=== PATIENT | male | born 1935 | race Caucasian/White ===

== ENCOUNTER → 2016-07-02 | Outpatient (CLI) | payer MEDICARE, OTHER ==
[~2016-07-02] MED LIST: ALLO100T PO; AMIO0.1T PO; ASPI81TA85 PO; ATOR1TAB21 PO; CALC500T36 PO; CAND16TA7 PO; CARV25TA PO; COQ-100C2 PO; FISH1000 PO; L-thyroxine PO; NIFE30TA2 PO; VITA50003 PO; WARF-20 PO; WARF-23 PO
[2016-07-02 13:51] LABS: INR 3.28
== END ==
LOC: M WUC 09:52
PROVIDERS: ATTEND Emergency Medicine
DX: Z51.81 Encounter for therapeutic drug level monitoring (principal); Z79.01 Long term (current) use of anticoagulants

== ENCOUNTER → 2016-07-27 | Outpatient (CLI) | payer MEDICARE, OTHER ==
[2016-07-27 12:46] LABS: INR 2.58
[2016-07-27 12:51] LABS: BASO # 0.1 K/mm3 (0.0-0.2); BASO % 1.1 % (0.0-1.0); EOS # 0.1 K/mm3 (0.0-0.50); EOS % 1.9 % (0.0-3.0); LARGE UNSTAINED CELL # 0.2 K/mm3 (0.0-0.4); LARGE UNSTAINED CELL % 2.9 % (0.0-4.0); LYMPH # 1.3 K/mm3 (1.5-4.5); LYMPH % 16.5 % (24.0-44.0); MEAN CORPUSCULAR HEMOGLOBIN 31.2 pg (27.0-33.0); MEAN CORPUSCULAR HGB CONC 33.3 g/dl (32.0-36.5); MEAN CORPUSCULAR VOLUME 93.9 fl (80.0-96.0); MONO # 0.5 K/mm3 (0.0-0.8); MONO % 7.7 % (0.0-5.0); NEUTROPHILS # 4.7 K/mm3 (1.8-7.7); NEUTROPHILS % 69.8 % (36.0-66.0); PLATELET COUNT, AUTOMATED 152 k/mm3 (150-450); RED CELL DISTRIBUTION WIDTH 15.2 % (11.5-14.5); WHITE BLOOD COUNT 6.8 K/mm3 (4.0-10.0)
[2016-07-27 13:07] LABS: ALBUMIN 3.9 GM/DL (3.2-5.2); ALBUMIN/GLOBULIN RATIO 1.22 (1.00-1.93); BILIRUBIN,TOTAL 0.6 MG/DL (0.2-1.0); CALCIUM LEVEL 8.2 MG/DL (8.8-10.2); CREATININE FOR GFR 1.68 MG/DL (0.70-1.30); GLOMERULAR FILTRATION RATE 41.7 (>35); MAGNESIUM LEVEL 2.3 MG/DL (1.8-2.4); POTASSIUM SERUM 4.1 MEQ/L (3.5-5.1); TOTAL PROTEIN 7.1 GM/DL (6.4-8.2); URIC ACID 4.7 MG/DL (3.5-7.2)
== END ==
LOC: M WUC 09:44
PROVIDERS: ATTEND Emergency Medicine
DX: I10 Essential (primary) hypertension (principal); E78.2 Mixed hyperlipidemia; D50.9 Iron deficiency anemia, unspecified; M10.9 Gout, unspecified; E03.9 Hypothyroidism, unspecified; Z79.01 Long term (current) use of anticoagulants; E55.9 Vitamin D deficiency, unspecified

== ENCOUNTER → 2016-08-07 | Outpatient (REF) | payer MEDICARE, OTHER ==
[2016-08-07 16:13] LABS: CREATININE FOR GFR 1.7 MG/DL (0.70-1.30); GLOMERULAR FILTRATION RATE 41.2 (>35)
== END ==
LOC: M LABDRAW1 15:28
PROVIDERS: ATTEND Physician Assistant
DX: M17.12 Unilateral primary osteoarthritis, left knee (principal)

== ENCOUNTER → 2016-08-10 | Outpatient (CLI) | payer MEDICARE, OTHER ==
[2016-08-10 16:50] LABS: CREATININE FOR GFR 1.55 MG/DL (0.70-1.30); GLOMERULAR FILTRATION RATE 45.8 (>35)
== END ==
LOC: M WUC 14:41
PROVIDERS: ATTEND Physician Assistant
DX: M48.06 Spinal stenosis, lumbar region (principal)

== ENCOUNTER → 2016-08-28 | Outpatient (REF) | payer MEDICARE, OTHER ==
[2016-08-28 13:57] LABS: INR 4.5
== END ==
LOC: M LABDRAW1 12:32
PROVIDERS: ATTEND Emergency Medicine
DX: Z79.01 Long term (current) use of anticoagulants (principal)

== ENCOUNTER → 2016-09-05 | Outpatient (CLI) | payer MEDICARE, OTHER ==
[2016-09-05 12:31] LABS: INR 3.59
== END ==
LOC: M WUC 10:28
PROVIDERS: ATTEND Emergency Medicine
DX: Z79.01 Long term (current) use of anticoagulants (principal)

== ENCOUNTER → 2016-09-13 | Outpatient (CLI) | payer MEDICARE, OTHER ==
[2016-09-13 12:36] LABS: INR 1.46
== END ==
LOC: M WUC 10:01
PROVIDERS: ATTEND Emergency Medicine
DX: Z79.01 Long term (current) use of anticoagulants (principal)

== ENCOUNTER → 2016-11-08 | Outpatient (REF) | payer MEDICARE, OTHER ==
[~2016-11-08] MED LIST changes: +CALCTAB7 PO; +DONETAB6 PO; +ELIQ2.5T PO; +LEVO88TA3 PO; +MEGA1CAP3 PO; +MEMA1TAB PO; +NIFE15TA PO; +VITA100L PO
[2016-11-08 10:28] LABS: BASO % 0.7 % (0.0-1.0); EOS # 0.2 K/mm3 (0.0-0.50); EOS % 2.3 % (0.0-3.0); LARGE UNSTAINED CELL # 0.2 K/mm3 (0.0-0.4); LARGE UNSTAINED CELL % 2.5 % (0.0-4.0); LYMPH # 1.4 K/mm3 (1.5-4.5); MEAN CORPUSCULAR HEMOGLOBIN 32.2 pg (27.0-33.0); MEAN CORPUSCULAR HGB CONC 33.3 g/dl (32.0-36.5); MEAN CORPUSCULAR VOLUME 96.8 fl (80.0-96.0); MONO # 0.6 K/mm3 (0.0-0.8); MONO % 8.1 % (0.0-5.0); NEUTROPHILS # 5.2 K/mm3 (1.8-7.7); NEUTROPHILS % 70.4 % (36.0-66.0); PLATELET COUNT, AUTOMATED 157 k/mm3 (150-450); RED CELL DISTRIBUTION WIDTH 15.1 % (11.5-14.5); WHITE BLOOD COUNT 7.4 K/mm3 (4.0-10.0)
[2016-11-08 10:56] LABS: ALBUMIN 3.6 GM/DL (3.2-5.2); ALBUMIN/GLOBULIN RATIO 1.24 (1.00-1.93); BILIRUBIN,TOTAL 0.7 MG/DL (0.2-1.0); CALCIUM LEVEL 8.3 MG/DL (8.8-10.2); CREATININE FOR GFR 1.41 MG/DL (0.70-1.30); GLOMERULAR FILTRATION RATE 51.1 (>35); MAGNESIUM LEVEL 2.2 MG/DL (1.8-2.4); TOTAL PROTEIN 6.5 GM/DL (6.4-8.2); URIC ACID 4.4 MG/DL (3.5-7.2)
== END ==
LOC: M LABDRAW1 08:06
PROVIDERS: ATTEND Emergency Medicine
DX: E78.2 Mixed hyperlipidemia (principal); I10 Essential (primary) hypertension; E55.9 Vitamin D deficiency, unspecified; D50.9 Iron deficiency anemia, unspecified; M10.9 Gout, unspecified; E83.42 Hypomagnesemia; E03.9 Hypothyroidism, unspecified

== ENCOUNTER → 2016-11-15 | Day surgery (SDC) | payer MEDICARE, OTHER ==
[~2016-11-15] VITALS: Ht 175.3 cm; Wt 84.2 kg
[~2016-11-15] MED LIST changes: +CLINDAMYCIN 600 MG in APPROPRIATE DILUENT 1 EA IV ONE; +LIDOCAINE 2% INJ 100 MG/5 ML SDV (FOR ANES.) As Ordered ONE; +LR 1,000 ML IV ONE; +LR 1,000 ML IV SCH; +MIDAZOLAM INJ 2 MG/2 ML VIAL (J2250) As Ordered ONE; +NORCO, ANEXSIA 5/325MG TABLET (HYDROcodone/ACETAMINOPHEN) PO PRN; +ONDANSETRON 4MG/2ML VIAL (J2405) As Ordered ONE; +ONDANSETRON 4MG/2ML VIAL (J2405) IV PRN; +PERCOCET 5MG/325MG TAB As Ordered ONE; +PROPOFOL 200 MG/20 ML VIAL As Ordered ONE; +ROPIvacaine 0.5% 30 ML INJECTION (J2795) As Ordered ONE; +TRIAMCINOLONE ACETONIDE SUSP 40 MG/ML VIAL (J3301) As Ordered ONE; +fentaNYL 100 MCG/2 ML INJECTION (J3010) As Ordered ONE; +fentaNYL 100 MCG/2 ML INJECTION (J3010) IV PRN
[2016-11-15] MEDS: PERCOCET 5MG/325MG TAB PO PRN ×2 (10:02→11:37)
[2016-11-15 11:30] VITALS: BP 144/71
--- NOTE | 2016-11-15 17:30 | RO ---
DATE OF PROCEDURE: 11/15/2016 PREOPERATIVE DIAGNOSIS: Left knee osteoarthritis, medial and lateral meniscus tears. POSTOPERATIVE DIAGNOSIS: Left knee osteoarthritis, medial and lateral meniscus tears. PROCEDURE: Left knee operative arthroscopy, partial medial and lateral meniscectomy, joint debridement, excision plica. SURGEON: Dr. Edwardo Ward BRAILLE CODER: Dakotah Robertson ANESTHESIA: General. ESTIMATED BLOOD LOSS: Minimal. COMPLICATIONS: None. INDICATIONS: This is an 81-year-old gentleman who has had some persistent knee pain and some degree of arthritis, but it did not seem to be severe arthritic change. He had medial and lateral meniscus tears on an MRI scan and had a previous arthroscopy on his other knee and did very well with that. He wished to try debridement of his left knee, understood the nature this, the risks of bleeding, infection, damage to nerves, vessels, persistent pain, blood clots, medical problems, among others. He had failed conservative management. DESCRIPTION OF PROCEDURE: The patient was taken to operating room, placed in supine position after general anesthesia was induced. The left lower extremity was prepped and draped in the usual sterile fashion. A time-out was performed. I then created inferomedial, inferolateral portals after the tourniquet was inflated and identified the patellofemoral joint, which had grade 3 changes in both sides. He had a large medial parapatellar plica. I proceeded down both gutters, identified the medial compartment. He had a large posterior horn medial meniscus tear that was debrided with a combination of basket punch and a 4.2 shaver back to a stable rim. The meniscus was reprobed. There was some arthritic change on the medial compartment, which was carefully smoothed off, removing any loose flaps. The anterior cruciate ligament (ACL) was identified. There was some fraying of the ACL, indicating probably some partial tear that appeared to be remote. The lateral compartment was identified, and there was some central lateral meniscus tearing, loose flap that was debrided. This was debrided with a shaver. Proceeded back to patellofemoral joint, removed the medial parapatellar plica. Irrigated the knee copiously, reexamined the entire joint, removed the instrumentation, closed the portals using #4-0 nylon suture, injected 30 mL of Naropin with 2 mL of Kenalog 10 and a sterile dressing was applied. Tourniquet was deflated. He was taken to the recovery room in stable condition. There were no known complications. The plan be routine postoperative.
== END | disposition home or self-care (01) ==
LOC: M SDC 07:39
PROVIDERS: ATTEND Orthopaedic Surgery
DX: M23.222 Derangement of posterior horn of medial meniscus due to old tear or injury, left knee (principal); M23.362 Other meniscus derangements, other lateral meniscus, left knee; M67.52 Plica syndrome, left knee; I10 Essential (primary) hypertension; I25.10 Atherosclerotic heart disease of native coronary artery without angina pectoris; E78.5 Hyperlipidemia, unspecified; Z98.61 Coronary angioplasty status; K44.9 Diaphragmatic hernia without obstruction or gangrene; K21.9 Gastro-esophageal reflux disease without esophagitis; E03.9 Hypothyroidism, unspecified; M10.9 Gout, unspecified; Z88.0 Allergy status to penicillin; Z79.82 Long term (current) use of aspirin; Z79.899 Other long term (current) drug therapy; Z87.891 Personal history of nicotine dependence
CPT/HCPCS: 29880; J2250; J2405; J2795; J3010; J3301

== ENCOUNTER → 2017-01-24 | Outpatient (REF) | payer MEDICARE, OTHER ==
[~2017-01-24] MED LIST changes: -CLINDAMYCIN 600 MG in APPROPRIATE DILUENT 1 EA IV ONE; -LIDOCAINE 2% INJ 100 MG/5 ML SDV (FOR ANES.) As Ordered ONE; -LR 1,000 ML IV ONE; -LR 1,000 ML IV SCH; -MIDAZOLAM INJ 2 MG/2 ML VIAL (J2250) As Ordered ONE; -NORCO, ANEXSIA 5/325MG TABLET (HYDROcodone/ACETAMINOPHEN) PO PRN; -ONDANSETRON 4MG/2ML VIAL (J2405) As Ordered ONE; -ONDANSETRON 4MG/2ML VIAL (J2405) IV PRN; -PERCOCET 5MG/325MG TAB As Ordered ONE; -PROPOFOL 200 MG/20 ML VIAL As Ordered ONE; -ROPIvacaine 0.5% 30 ML INJECTION (J2795) As Ordered ONE; -TRIAMCINOLONE ACETONIDE SUSP 40 MG/ML VIAL (J3301) As Ordered ONE; +VITA1CAP40 PO; -VITA50003 PO; -fentaNYL 100 MCG/2 ML INJECTION (J3010) As Ordered ONE; -fentaNYL 100 MCG/2 ML INJECTION (J3010) IV PRN
[2017-01-24 12:01] LABS: BASO % 0.6 % (0.0-1.0); EOS # 0.2 K/mm3 (0.0-0.50); EOS % 2.8 % (0.0-3.0); LARGE UNSTAINED CELL # 0.2 K/mm3 (0.0-0.4); LARGE UNSTAINED CELL % 2.5 % (0.0-4.0); LYMPH # 1.5 K/mm3 (1.5-4.5); LYMPH % 19.3 % (24.0-44.0); MEAN CORPUSCULAR HEMOGLOBIN 32.1 pg (27.0-33.0); MEAN CORPUSCULAR HGB CONC 34.2 g/dl (32.0-36.5); MONO # 0.6 K/mm3 (0.0-0.8); MONO % 8.5 % (0.0-5.0); NEUTROPHILS # 4.4 K/mm3 (1.8-7.7); NEUTROPHILS % 66.2 % (36.0-66.0); PLATELET COUNT, AUTOMATED 150 k/mm3 (150-450); RED CELL DISTRIBUTION WIDTH 14.4 % (11.5-14.5); WHITE BLOOD COUNT 6.7 K/mm3 (4.0-10.0)
[2017-01-24 12:44] LABS: ALBUMIN 3.8 GM/DL (3.2-5.2); ALBUMIN/GLOBULIN RATIO 1.23 (1.00-1.93); BILIRUBIN,TOTAL 0.4 MG/DL (0.2-1.0); CALCIUM LEVEL 8.6 MG/DL (8.8-10.2); CREATININE FOR GFR 1.5 MG/DL (0.70-1.30); GLOMERULAR FILTRATION RATE 47.6 (>35); MAGNESIUM LEVEL 2.6 MG/DL (1.8-2.4); POTASSIUM SERUM 4.2 MEQ/L (3.5-5.1); TOTAL PROTEIN 6.9 GM/DL (6.4-8.2); URIC ACID 4.5 MG/DL (3.5-7.2)
== END ==
LOC: M LABDRAW1 11:17
PROVIDERS: ATTEND Emergency Medicine
DX: E78.2 Mixed hyperlipidemia (principal); I10 Essential (primary) hypertension; E55.9 Vitamin D deficiency, unspecified; D50.9 Iron deficiency anemia, unspecified; M10.9 Gout, unspecified; E83.42 Hypomagnesemia; E03.9 Hypothyroidism, unspecified

== ENCOUNTER → 2017-02-28 | Outpatient (CLI) | payer MEDICARE, OTHER ==
[2017-02-28 13:27] LABS: INR 1.15
== END ==
LOC: M WUC 10:00
PROVIDERS: ATTEND Physical Medicine & Rehabilitation
DX: Z01.818 Encounter for other preprocedural examination (principal); M48.06 Spinal stenosis, lumbar region

== ENCOUNTER → 2017-07-17 | Outpatient (CLI) | payer MEDICARE, OTHER ==
[2017-07-19 09:23] LABS: CARCINOEMBRYONIC ANTIGEN 1.7 NG/ML (<2.5)
== END ==
LOC: M WUC 11:22
DX: Z85.038 Personal history of other malignant neoplasm of large intestine (principal); Z79.899 Other long term (current) drug therapy
CPT/HCPCS: 82378

== ENCOUNTER → 2017-07-26 | Outpatient (REF) | payer MEDICARE, OTHER ==
[2017-07-26 14:08] LABS: BASO % 0.6 % (0.0-1.0); EOS # 0.1 10^3/uL (0.0-0.50); EOS % 1.9 % (0.0-3.0); HEMATOCRIT 36.5 % (42.0-52.0); HEMOGLOBIN 12.2 g/dl (14.0-18.0); IMMATURE GRANULOCYTE % 0.3 % (0-0); LYMPH # 1.2 10^3/uL (1.5-4.5); LYMPH % 16.3 % (24.0-44.0); MEAN CORPUSCULAR HEMOGLOBIN 31.4 pg (27.0-33.0); MEAN CORPUSCULAR HGB CONC 33.4 g/dl (32.0-36.5); MEAN CORPUSCULAR VOLUME 94.1 fl (80.0-96.0); MONO # 0.8 10^3/uL (0.0-0.8); MONO % 11.2 % (0.0-5.0); NEUTROPHILS % 69.7 % (36.0-66.0); PLATELET COUNT, AUTOMATED 149 10^3/uL (150-450); RED BLOOD COUNT 3.88 10^6/uL (4.30-6.10); RED CELL DISTRIBUTION WIDTH 14.8 % (11.5-14.5); WHITE BLOOD COUNT 7.2 10^3/uL (4.0-10.0)
[2017-07-26 14:36] LABS: TOTAL 25(OH) VITAMIN D 45.5 NG/ML (30.0-100.0)
[2017-07-26 14:43] LABS: ALBUMIN/GLOBULIN RATIO 1.54 (1.00-1.93); ALKALINE PHOSPHATASE 138 U/L (45-117); ALT/SGPT 39 U/L (12-78); ANION GAP 6 MEQ/L (8-16); AST/SGOT 23 U/L (7-37); BILIRUBIN,TOTAL 0.5 MG/DL (0.2-1.0); BLOOD UREA NITROGEN 25 MG/DL (7-18); CALCIUM LEVEL 8.9 MG/DL (8.8-10.2); CARBON DIOXIDE LEVEL 29 MEQ/L (21-32); CHLORIDE LEVEL 109 MEQ/L (98-107); CHOLESTEROL LEVEL 168 MG/DL (<200); CREATININE FOR GFR 1.64 MG/DL (0.70-1.30); FREE T4 1.34 NG/DL (0.76-1.46); GLOMERULAR FILTRATION RATE 42.8 (>35); GLUCOSE, FASTING 102 MG/DL (70-100); HDL CHOLESTEROL 60 MG/DL (>40); LDL CHOLESTEROL 89.2 MG/DL (<100); MAGNESIUM LEVEL 2.4 MG/DL (1.8-2.4); NON-HDL-C 108 MG/DL; POTASSIUM SERUM 4.1 MEQ/L (3.5-5.1); SODIUM LEVEL 144 MEQ/L (136-145); THYROID STIMULATING HORMONE 0.875 uIU/ML (0.358-3.740); TOTAL PROTEIN 6.6 GM/DL (6.4-8.2); TRIGLYCERIDES LEVEL 94 MG/DL (<150); URIC ACID 4.4 MG/DL (3.5-7.2)
== END ==
LOC: M LABDRAW1 13:09
DX: I48.0 Paroxysmal atrial fibrillation (principal); I10 Essential (primary) hypertension; E78.2 Mixed hyperlipidemia; E03.9 Hypothyroidism, unspecified; E55.9 Vitamin D deficiency, unspecified; M10.9 Gout, unspecified; E83.42 Hypomagnesemia
CPT/HCPCS: 83735

== ENCOUNTER 2017-09-15 12:40 | Emergency (ER) | payer MEDICARE, OTHER ==
[2017-09-15 14:06] LABS: BASO % 0.3 % (0.0-1.0); EOS # 0.1 10^3/uL (0.0-0.50); HEMATOCRIT 36.3 % (42.0-52.0); HEMOGLOBIN 12.5 g/dl (14.0-18.0); IMMATURE GRANULOCYTE % 0.4 % (0-3.0); LYMPH # 1.2 10^3/uL (1.5-4.5); LYMPH % 12.9 % (24.0-44.0); MEAN CORPUSCULAR HGB CONC 34.4 g/dl (32.0-36.5); MEAN CORPUSCULAR VOLUME 92.8 fl (80.0-96.0); MONO # 1.1 10^3/uL (0.0-0.8); MONO % 12.5 % (0.0-5.0); NEUTROPHILS # 6.6 10^3/uL (1.8-7.7); NEUTROPHILS % 72.9 % (36.0-66.0); PLATELET COUNT, AUTOMATED 153 10^3/uL (150-450); RED BLOOD COUNT 3.91 10^6/uL (4.30-6.10); RED CELL DISTRIBUTION WIDTH 14.6 % (11.5-14.5)
[2017-09-15 14:25] LABS: NT-PRO BNP 269 PG/ML (<450)
[2017-09-15 14:26] LABS: ALBUMIN 3.6 GM/DL (3.2-5.2); ALBUMIN/GLOBULIN RATIO 1.13 (1.00-1.93); ALKALINE PHOSPHATASE 126 U/L (45-117); ALT/SGPT 35 U/L (12-78); ANION GAP 7 MEQ/L (8-16); AST/SGOT 19 U/L (7-37); BILIRUBIN,DIRECT 0.2 MG/DL (0.0-0.2); BILIRUBIN,TOTAL 0.6 MG/DL (0.2-1.0); BLOOD UREA NITROGEN 25 MG/DL (7-18); CALCIUM LEVEL 8.5 MG/DL (8.8-10.2); CARBON DIOXIDE LEVEL 29 MEQ/L (21-32); CHLORIDE LEVEL 107 MEQ/L (98-107); CK-MB VALUE MASS 5.4 NG/ML (0.0-3.6); CPK CREATINE PHOSPHOKINASE 257 U/L (39-308); CREATININE FOR GFR 1.39 MG/DL (0.70-1.30); GLOMERULAR FILTRATION RATE 51.8 (>35); GLUCOSE, FASTING 96 MG/DL (70-100); SODIUM LEVEL 143 MEQ/L (136-145); TOTAL PROTEIN 6.8 GM/DL (6.4-8.2); TROPONIN I < 0.02 NG/ML (< 0.10)
[2017-09-15] MEDS ORDERED: ISOVUE-370 76% 100ML VIAL (Q9967) As Ordered ×2 (14:26)
[2017-09-15] MEDS: KETOROLAC 30 MG/ML VIAL (J1885) IV ×2 (15:39)
== END 2017-09-15 16:05 | disposition home or self-care (01) ==
LOC: M ED 12:40
DX: S22.32XA Fracture of one rib, left side, initial encounter for closed fracture (principal); W00.0XXA Fall on same level due to ice and snow, initial encounter; Y92.89 Other specified places as the place of occurrence of the external cause; I48.91 Unspecified atrial fibrillation; I10 Essential (primary) hypertension; F03.90 Unspecified dementia, unspecified severity, without behavioral disturbance, psychotic disturbance, mood disturbance, and anxiety; G47.30 Sleep apnea, unspecified; E03.9 Hypothyroidism, unspecified; Z85.038 Personal history of other malignant neoplasm of large intestine; Z95.5 Presence of coronary angioplasty implant and graft; Z87.891 Personal history of nicotine dependence; Z88.0 Allergy status to penicillin; Z91.048 Other nonmedicinal substance allergy status; Z79.899 Other long term (current) drug therapy; Z79.01 Long term (current) use of anticoagulants
CPT/HCPCS: Q9967

== ENCOUNTER → 2017-09-15 | Outpatient (CLI) | payer MEDICARE, OTHER | LOC: M WUC 11:13 | DX: S22.32XA Fracture of one rib, left side, initial encounter for closed fracture (principal); X58.XXXA Exposure to other specified factors, initial encounter; Y92.9 Unspecified place or not applicable ==

== ENCOUNTER → 2017-11-27 | Outpatient (REF) | payer MEDICARE, OTHER ==
[2017-11-28 11:10] LABS: MAGNESIUM LEVEL 2.8 MG/DL (1.8-2.4)
[2017-11-28 11:10] LABS: THYROID STIMULATING HORMONE 0.584 uIU/ML (0.358-3.740)
== END ==
LOC: M LABSMT 09:28
DX: I48.0 Paroxysmal atrial fibrillation (principal)
CPT/HCPCS: 83735

== ENCOUNTER → 2018-01-30 | Outpatient (CLI) | payer MEDICARE, OTHER ==
[2018-01-30 11:59] LABS: BASO % 0.6 % (0.0-1.0); EOS # 0.2 10^3/uL (0.0-0.50); HEMATOCRIT 39.1 % (42.0-52.0); HEMOGLOBIN 13.2 g/dl (13.5-17.5); IMMATURE GRANULOCYTE % 0.3 % (0-3.0); LYMPH # 1.2 10^3/uL (1.5-4.5); LYMPH % 17.8 % (24.0-44.0); MEAN CORPUSCULAR HEMOGLOBIN 31.7 pg (27.0-33.0); MEAN CORPUSCULAR HGB CONC 33.8 g/dl (32.0-36.5); MEAN CORPUSCULAR VOLUME 93.8 fl (80.0-96.0); MONO # 0.8 10^3/uL (0.0-0.8); MONO % 11.2 % (0.0-5.0); NEUTROPHILS # 4.5 10^3/uL (1.8-7.7); NEUTROPHILS % 67.1 % (36.0-66.0); PLATELET COUNT, AUTOMATED 153 10^3/uL (150-450); RED BLOOD COUNT 4.17 10^6/uL (4.30-6.10); RED CELL DISTRIBUTION WIDTH 14.3 % (11.5-14.5); WHITE BLOOD COUNT 6.7 10^3/uL (4.0-10.0)
[2018-01-30 12:51] LABS: ALBUMIN 3.8 GM/DL (3.2-5.2); ALBUMIN/GLOBULIN RATIO 1.23 (1.00-1.93); ALKALINE PHOSPHATASE 156 U/L (45-117); ALT/SGPT 29 U/L (12-78); ANION GAP 9 MEQ/L (8-16); AST/SGOT 22 U/L (7-37); BILIRUBIN,TOTAL 0.5 MG/DL (0.2-1.0); BLOOD UREA NITROGEN 18 MG/DL (7-18); CALCIUM LEVEL 8.4 MG/DL (8.8-10.2); CARBON DIOXIDE LEVEL 28 MEQ/L (21-32); CHLORIDE LEVEL 106 MEQ/L (98-107); CHOLESTEROL LEVEL 197 MG/DL (<200); CREATININE FOR GFR 1.43 MG/DL (0.70-1.30); FREE T4 1.15 NG/DL (0.76-1.46); GLOMERULAR FILTRATION RATE 50.2 (>35); GLUCOSE, FASTING 86 MG/DL (70-100); HDL CHOLESTEROL 65 MG/DL (>40); MAGNESIUM LEVEL 2.2 MG/DL (1.8-2.4); NON-HDL-C 132 MG/DL; SODIUM LEVEL 143 MEQ/L (136-145); TOTAL PROTEIN 6.9 GM/DL (6.4-8.2); TRIGLYCERIDES LEVEL 90 MG/DL (<150); URIC ACID 4.6 MG/DL (3.5-7.2)
== END ==
LOC: M WUC 09:32
DX: I48.0 Paroxysmal atrial fibrillation (principal); I10 Essential (primary) hypertension; E78.2 Mixed hyperlipidemia; E03.9 Hypothyroidism, unspecified; E55.9 Vitamin D deficiency, unspecified
CPT/HCPCS: 83735

== ENCOUNTER → 2018-06-04 | Outpatient (REF) | payer MEDICARE, OTHER ==
[2018-06-04 18:47] LABS: APPEARANCE, URINE CLEAR (CLEAR); BACTERIA, URINE AUTO NEGATIVE (NEGATIVE); BILIRUBIN, URINE AUTO NEGATIVE (NEGATIVE); BLOOD, URINE BLOOD NEGATIVE (NEGATIVE); COLOR, URINE YELLOW (YELLOW); GLUCOSE, URINE (UA) AUTO NEGATIVE (NEGATIVE); KETONE, URINE AUTO NEGATIVE (NEGATIVE); LEUKOCYTE ESTERASE, URINE AUTO NEGATIVE (NEGATIVE); MUCUS, URINE SMALL (NEGATIVE); NITRITE, URINE AUTO NEGATIVE (NEGATIVE); PROTEIN, URINE AUTO 1+ mg/dL (NEGATIVE); RBC, URINE AUTO 0 /HPF (0-3); SPECIFIC GRAVITY URINE AUTO 1.016 (1.002-1.035); SQUAMOUS EPITHELIAL CELL UR AU 0 /HPF (0-6); UROBILINOGEN, URINE AUTO 0.2 mg/dL (0.0-2.0); WBC, URINE AUTO 0 /HPF (0-3)
[2018-06-04 18:54] LABS: CHOLESTEROL LEVEL 176 MG/DL (<200); HDL CHOLESTEROL 55 MG/DL (>40); LDL CHOLESTEROL 96 MG/DL (<100); NON-HDL-C 121 MG/DL; TRIGLYCERIDES LEVEL 123 MG/DL (<150)
[2018-06-04 18:59] LABS: TOTAL 25(OH) VITAMIN D 53.3 NG/ML (30.0-100.0)
[2018-06-04 19:04] LABS: BASO % 0.4 % (0.0-1.0); EOS # 0.1 10^3/uL (0.0-0.50); EOS % 1.9 % (0.0-3.0); HEMATOCRIT 40.5 % (42.0-52.0); HEMOGLOBIN 13.3 g/dl (13.5-17.5); IMMATURE GRANULOCYTE % 0.3 % (0-3.0); LYMPH # 0.9 10^3/uL (1.5-4.5); LYMPH % 13.1 % (24.0-44.0); MEAN CORPUSCULAR HEMOGLOBIN 31.5 pg (27.0-33.0); MEAN CORPUSCULAR HGB CONC 32.8 g/dl (32.0-36.5); MONO # 0.6 10^3/uL (0.0-0.8); MONO % 8.4 % (0.0-5.0); NEUTROPHILS # 5.3 10^3/uL (1.8-7.7); NEUTROPHILS % 75.9 % (36.0-66.0); PLATELET COUNT, AUTOMATED 150 10^3/uL (150-450); RED BLOOD COUNT 4.22 10^6/uL (4.30-6.10); RED CELL DISTRIBUTION WIDTH 14.8 % (11.5-14.5)
[2018-06-04 19:08] LABS: INR 1.18; PARTIAL THROMBOPLASTIN TIME 32.2 SECONDS (25.4-37.6); PROTHROMBIN TIME 15.2 SECONDS (12.1-14.4)
[2018-06-04 19:10] LABS: PTH INTACT 44.3 PG/ML (18.5-88.0)
[2018-06-04 19:21] LABS: ESTIMATED AVERAGE GLUCOSE 123 MG/DL (60-110); HEMOGLOBIN A1c 5.9 %
[2018-06-04 19:23] LABS: MAU/CREAT RATIO 112.8 MCG/MG (0.0-30.0)
[2018-06-06 14:15] LABS: PSA TOTAL 1.1 ng/mL (0.0-4.0)
== END ==
LOC: M LABDRAW1 10:52
DX: I48.0 Paroxysmal atrial fibrillation (principal); I12.9 Hypertensive chronic kidney disease with stage 1 through stage 4 chronic kidney disease, or unspecified chronic kidney disease; E78.5 Hyperlipidemia, unspecified; N18.3 Chronic kidney disease, stage 3 (moderate); E55.9 Vitamin D deficiency, unspecified; Z79.899 Other long term (current) drug therapy
CPT/HCPCS: 83735

== ENCOUNTER → 2018-06-04 | Outpatient (REF) | payer MEDICARE, OTHER ==
[2018-06-04 18:59] LABS: ALBUMIN/GLOBULIN RATIO 1.38 (1.00-1.93); ALKALINE PHOSPHATASE 157 U/L (45-117); ALT/SGPT 31 U/L (12-78); ANION GAP 8 MEQ/L (8-16); AST/SGOT 25 U/L (7-37); BILIRUBIN,TOTAL 0.5 MG/DL (0.2-1.0); BLOOD UREA NITROGEN 21 MG/DL (7-18); CALCIUM LEVEL 8.4 MG/DL (8.8-10.2); CARBON DIOXIDE LEVEL 28 MEQ/L (21-32); CHLORIDE LEVEL 106 MEQ/L (98-107); CREATININE FOR GFR 1.57 MG/DL (0.70-1.30); GLOMERULAR FILTRATION RATE 44.9 (>35); GLUCOSE, FASTING 105 MG/DL (70-100); MAGNESIUM LEVEL 2.3 MG/DL (1.8-2.4); POTASSIUM SERUM 4.3 MEQ/L (3.5-5.1); SODIUM LEVEL 142 MEQ/L (136-145); TOTAL PROTEIN 6.9 GM/DL (6.4-8.2)
== END ==
LOC: M LABDRAW1 10:50
DX: I11.9 Hypertensive heart disease without heart failure (principal); I48.0 Paroxysmal atrial fibrillation

== ENCOUNTER → 2018-09-15 | Outpatient (CLI) | payer MEDICARE, OTHER ==
[~2018-09-15] MED LIST changes: +PERC5TAB12 PO; -VITA1CAP40 PO; +VITA50005 PO
[2018-09-15 13:36] LABS: BASO # 0.1 10^3/uL (0.0-0.2); BASO % 0.9 % (0.0-1.0); EOS # 0.1 10^3/uL (0.0-0.50); EOS % 1.7 % (0.0-3.0); HEMATOCRIT 39.3 % (42.0-52.0); HEMOGLOBIN 12.9 g/dl (13.5-17.5); LYMPH % 17.5 % (24.0-44.0); MEAN CORPUSCULAR HGB CONC 32.8 g/dl (32.0-36.5); MEAN CORPUSCULAR VOLUME 94.5 fl (80.0-96.0); MONO # 0.6 10^3/uL (0.0-0.8); MONO % 10.7 % (0.0-5.0); PLATELET COUNT, AUTOMATED 132 10^3/uL (150-450); RED BLOOD COUNT 4.16 10^6/uL (4.30-6.10); WHITE BLOOD COUNT 5.7 10^3/uL (4.0-10.0)
[2018-09-15 13:50] LABS: INR 1.07
[2018-09-15 13:51] LABS: PARTIAL THROMBOPLASTIN TIME 31.6 SECONDS (25.4-37.6)
[2018-09-15 14:02] LABS: ALBUMIN 3.8 GM/DL (3.2-5.2); CALCIUM LEVEL 8.8 MG/DL (8.8-10.2); CHOLESTEROL RISK RATIO 3.578 (<5); CREATININE FOR GFR 1.44 MG/DL (0.70-1.30); FREE T4 1.59 NG/DL (0.76-1.46); GLOMERULAR FILTRATION RATE 49.6 (>35); MAGNESIUM LEVEL 2.1 MG/DL (1.8-2.4); POTASSIUM SERUM 4.1 MEQ/L (3.5-5.1); THYROID STIMULATING HORMONE 0.609 uIU/ML (0.358-3.740); TOTAL PROTEIN 6.6 GM/DL (6.4-8.2); URIC ACID 4.1 MG/DL (3.5-7.2)
[2018-09-15 14:20] LABS: HEMOGLOBIN A1c 5.7 %
== END ==
LOC: M WUC 11:16
PROVIDERS: ATTEND Nurse Practitioner Family
DX: I12.9 Hypertensive chronic kidney disease with stage 1 through stage 4 chronic kidney disease, or unspecified chronic kidney disease (principal); R73.09 Other abnormal glucose; E78.5 Hyperlipidemia, unspecified; I48.91 Unspecified atrial fibrillation; N18.3 Chronic kidney disease, stage 3 (moderate); M10.9 Gout, unspecified

== ENCOUNTER → 2018-11-03 | Outpatient (CLI) | payer MEDICARE, OTHER ==
[~2018-11-03] MED LIST changes: +CALC12504 PO; -CALC500T36 PO
[2018-11-03 13:23] LABS: FREE T4 1.28 NG/DL (0.76-1.46); THYROID STIMULATING HORMONE 1.74 uIU/ML (0.358-3.740)
== END ==
LOC: M WUC 10:38
PROVIDERS: ATTEND Nurse Practitioner Family
DX: E03.9 Hypothyroidism, unspecified (principal)

== ENCOUNTER → 2019-02-19 | Outpatient (REF) | payer MEDICARE, OTHER ==
[~2019-02-19] MED LIST changes: -CALC12504 PO; +CALC500T61 PO; -MEMA1TAB PO; +MEMA1TAB3 PO
[2019-02-19 16:28] LABS: BASO # 0.1 10^3/uL (0.0-0.2); BASO % 0.7 % (0.0-1.0); EOS # 0.1 10^3/uL (0.0-0.50); EOS % 1.6 % (0.0-3.0); HEMATOCRIT 37.5 % (42.0-52.0); HEMOGLOBIN 12.4 g/dl (13.5-17.5); LYMPH # 0.9 10^3/uL (1.5-4.5); LYMPH % 12.8 % (24.0-44.0); MEAN CORPUSCULAR HEMOGLOBIN 31.5 pg (27.0-33.0); MEAN CORPUSCULAR HGB CONC 33.1 g/dl (32.0-36.5); MEAN CORPUSCULAR VOLUME 95.2 fl (80.0-96.0); MONO # 0.6 10^3/uL (0.0-0.8); MONO % 9.2 % (0.0-5.0); NEUTROPHILS # 5.1 10^3/uL (1.8-7.7); NEUTROPHILS % 75.4 % (36.0-66.0); PLATELET COUNT, AUTOMATED 177 10^3/uL (150-450); RED BLOOD COUNT 3.94 10^6/uL (4.30-6.10); WHITE BLOOD COUNT 6.7 10^3/uL (4.0-10.0)
[2019-02-19 16:39] LABS: INR 1.15; PROTHROMBIN TIME 14.4 SECONDS (11.8-14.0)
[2019-02-19 16:40] LABS: PARTIAL THROMBOPLASTIN TIME 38.3 SECONDS (25.0-38.4)
[2019-02-19 16:51] LABS: ALBUMIN 3.7 GM/DL (3.2-5.2); BILIRUBIN,TOTAL 0.5 MG/DL (0.2-1.0); CALCIUM LEVEL 8.5 MG/DL (8.8-10.2); CHOLESTEROL RISK RATIO 2.909 (<5); CREATININE FOR GFR 1.32 MG/DL (0.70-1.30); FREE T4 1.01 NG/DL (0.76-1.46); GLOMERULAR FILTRATION RATE 54.9 (>35); MAGNESIUM LEVEL 2.7 MG/DL (1.8-2.4); POTASSIUM SERUM 4.2 MEQ/L (3.5-5.1); THYROID STIMULATING HORMONE 5.74 uIU/ML (0.358-3.740); TOTAL PROTEIN 6.9 GM/DL (6.4-8.2)
[2019-02-19 18:24] LABS: HEMOGLOBIN A1c 5.7 %
[2019-02-19 21:07] LABS: TOTAL 25(OH) VITAMIN D 53.6 NG/ML (30.0-100.0)
[2019-02-19 21:08] LABS: PTH INTACT 71.6 PG/ML (18.5-88.0)
== END ==
LOC: M LABDRAW1 15:44
PROVIDERS: ATTEND Nurse Practitioner Family
DX: I12.9 Hypertensive chronic kidney disease with stage 1 through stage 4 chronic kidney disease, or unspecified chronic kidney disease (principal); N18.3 Chronic kidney disease, stage 3 (moderate); E03.9 Hypothyroidism, unspecified; R73.09 Other abnormal glucose; E78.5 Hyperlipidemia, unspecified; I48.91 Unspecified atrial fibrillation

== ENCOUNTER 2019-10-12 01:30 | Inpatient (IN) | payer MEDICARE, OTHER ==
[~2019-10-12] VITALS: Ht 172.7 cm; Wt 77.5 kg
[2019-10-12] VITALS (9 sets, daily range): BP systolic 105–187; BP diastolic 52–86; O2SAT 93–95
[2019-10-12 02:01] LABS: BASO % 0.2 % (0.0-1.0); HEMATOCRIT 39.1 % (42.0-52.0); HEMOGLOBIN 12.9 g/dl (13.5-17.5); LYMPH # 0.9 10^3/uL (1.5-5.0); LYMPH % 3.5 % (24.0-44.0); MEAN CORPUSCULAR HEMOGLOBIN 30.4 pg (27.0-33.0); MEAN CORPUSCULAR VOLUME 92.2 fl (80.0-96.0); MONO # 2.1 10^3/uL (0.0-0.8); MONO % 8.1 % (0.0-5.0); NEUTROPHILS # 22.8 10^3/uL (1.5-8.5); NEUTROPHILS % 87.4 % (36.0-66.0); PLATELET COUNT, AUTOMATED 131 10^3/uL (150-450); RED BLOOD COUNT 4.24 10^6/uL (4.30-6.10); WHITE BLOOD COUNT 26.1 10^3/uL (4.0-10.0)
[2019-10-12] MEDS ORDERED: CAND8TAB PO (02:01)
[2019-10-12] MEDS ORDERED: NAMZ1CAP2 PO (02:05)
[2019-10-12] MEDS ORDERED: VITA50005 PO (02:05)
[2019-10-12] MEDS ORDERED: NS 500 ML IV ONE (02:15)
[2019-10-12] MEDS ORDERED: ACETAMINOPHEN 500 MG TAB PO ONE (02:15)
[2019-10-12 02:22] LABS: ALBUMIN 3.7 GM/DL (3.2-5.2); BILIRUBIN,TOTAL 1.2 MG/DL (0.2-1.0); C REACTIVE PROTEIN QUANTITATIV 15.8 MG/DL (0.00-0.30); CALCIUM LEVEL 8.6 MG/DL (8.8-10.2); CREATININE FOR GFR 1.59 MG/DL (0.70-1.30); GLOMERULAR FILTRATION RATE 44.2 (>35); POTASSIUM SERUM 4.1 MEQ/L (3.5-5.1); TOTAL PROTEIN 7.2 GM/DL (6.4-8.2)
--- NOTE | 2019-10-12 03:31 | REP ---
Clinical: Fever. Comparison: 05/30/2016. Findings: Mediastinum and cardiac silhouette are normal. Lung sylvester demonstrate stable chronic interstitial changes. No obvious focal consolidation or effusion. No pneumothorax. Skeletal structures intact. Impression: Chronic stable changes. Electronically Signed by Darrius Ulloa MD 10/12/2019 03:23 A
[2019-10-12 03:42] LABS: APPEARANCE, URINE HAZY (CLEAR); BACTERIA, URINE AUTO NEGATIVE (NEGATIVE); BILIRUBIN, URINE AUTO NEGATIVE (NEGATIVE); BLOOD, URINE BLOOD 1+ (NEGATIVE); COLOR, URINE YELLOW (YELLOW); GLUCOSE, URINE (UA) AUTO NEGATIVE (NEGATIVE); KETONE, URINE AUTO NEGATIVE (NEGATIVE); LEUKOCYTE ESTERASE, URINE AUTO 1+ (NEGATIVE); MUCUS, URINE SMALL (NEGATIVE); NITRITE, URINE AUTO NEGATIVE (NEGATIVE); PROTEIN, URINE AUTO 2+ mg/dL (NEGATIVE); RBC, URINE AUTO 4 /HPF (0-3); SPECIFIC GRAVITY URINE AUTO 1.019 (1.002-1.035); SQUAMOUS EPITHELIAL CELL UR AU 0 /HPF (0-6); WBC, URINE AUTO 72 /HPF (0-3)
[2019-10-12] MEDS ORDERED: LEVO75TA4 PO (04:23)
[2019-10-12] MEDS ORDERED: NIFE30TA50 PO (04:28)
[2019-10-12] MEDS ORDERED: MAALOX 30 ML SUSP *UDC PO PRN (04:30)
[2019-10-12] MEDS ORDERED: ACETAMINOPHEN TAB 650MG DOSE (2X325MG) PO PRN (04:30)
[2019-10-12] MEDS ORDERED: SODIUM CHLORIDE 0.9% 1000ML IV STA (04:30)
--- NOTE | 2019-10-12 04:40 | HPEPDOC ---
[facility] Medical History & Physical Date of Admission Oct 12, 2019 Date of Service: Oct 12, 2019 Primary Care Physician: EBENEZER OSORIO Attending Physician: TRINI HERNANDEZ MD History and Physical TIME OF SERVICE: 500 AM CHIEF COMPLAINT: Fever HISTORY OF PRESENT ILLNESS: The patient has dementia and was unable to provide a thorough history. The majority of information was obtained from Dr. Xiao. This 84 year old gentleman's called EMS because he had a fever as high as 100.2 at home. Asked why he was here, the patient said he didn't know. He denies having any chest pain, shortness of breath, runny nose, cough, fever, chills, abdominal pain, nausea, vomiting, diarrhea or pain with urination. Denies having any guests at his house. His only complaint right now is of left eye pain after he accidentally punched himself in the eye. 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 HOME MEDICATIONS: Please see below. PHYSICAL EXAMINATION: Vital Signs Date Time Temp Pulse Resp B/P (MAP) Pulse Ox O2 Delivery O2 Flow Rate FiO2 10/12/19 01:39 101.7 85 18 193/84 (120) 95 Room Air GEN: well-nourished / well developed/ NAD INTEGUMENT: not flushed/ bilateral conjunctival injection, more prominent at the left HEENT: NCAT CVS: radial pulses intact / no lower extremity edema LUNGS: able to speak full sentences without stopping to take a breath / no coughing ABDOMEN: Contour (flat) / soft & not tender with palpation MSK/EXTREMITIES: range of motion intact in all 4 extremities NEURO: CN 2-12 are grossly intact / speech is not dysarthric PSYCH: alert and oriented to person place and time/ able to understand and follow all commands LABORATORY DATA: Immature Granulocyte % (Auto) 0.8, Neutrophils (%) (Auto) 87.4H, Lymphocytes (%) (Auto) 3.5L, Monocytes (%) (Auto) 8.1H, Eosinophils (%) (Auto) 0.0, Basophils (%) (Auto) 0.2, Neutrophils # (Auto) 22.8H, Lymphocytes # (Auto) 0.9L, Monocytes # (Auto) 2.1H, Eosinophils # (Auto) 0.0, Basophils # (Auto) 0.0, Nucleated Red Blood Cells % (auto) 0.0, D-Dimer, Quantitative 740.18H, Anion Gap 6L, [place]omer[place] r Filtration Rate 44.2, Lactic Acid Level 1.6, Calcium Level 8.6L, Total Bilirubin 1.2H, Aspartate Amino Transf (AST/SGOT) 20, Alanine Aminotransferase (ALT/SGPT) 21, Alkaline Phosphatase 147H, Lactate Dehydrogenase 233, C-Reactive Protein, Quantitative 15.80H, Total Protein 7.2, Albumin 3.7, Albumin/Globulin Ratio 1.06 POC pH (Misc Panel) 7.431, POC Base Excess (Misc Panel) 0.0, POC Saturated Per cent O2 (Misc) 94L, POC pO2 (Misc Panel) 67.0L, POC pCO2 (Misc Panel) 36.6, POC HCO3 (Misc Panel) 24.4, POC Total CO2 (Misc Panel) 25.0 Urine Color YELLOW, Urine Appearance HAZY, Urine pH 5.0, Urine Specific [place] 1.019, Urine Protein 2+H, Urine Glucose (Auto)(UA) NEGATIVE, Urine Ketones (Auto) NEGATIVE, Urine Blood 1+H, Urine Nitrite NEGATIVE, Urine Bilirubin NEGATIVE, Urine Urobilinogen 2.0H, Urine Leukocyte Esterase (Auto) 1+H, Urine WBC (Auto) 72H, Urine RBC (Auto) 4H, Urine Hyaline Casts (Auto) 0, Urine Bacteria (Auto) NEGATIVE, Urine Squamous Epithelial Cells 0, Urine Mucus (Auto) SMALL, Urine Sperm (Auto) IMAGING: Chest x-ray "Impression: Chronic stable changes." MICROBIOLOGY: 10/12/19 Coronavirus COVID-19 PCR (SUMI), Received Pending 10/12/19 Respiratory Panel (PCR) - Final, Complete 10/12/19 Blood Culture, Received Pending ASSESSMENT: Mr. Jameson is an 84-year-old with a history of chronic CAD, dyslipidemia, dementia, microvascular ischemic disease, atrial fibrillation, OA, HTN, gout, CKD 3, hypothyroidism, thrombocytopenia, who is admitted for evaluation of SIRS/sepsis of unclear cause and hypoxemia. PLAN: 1. SIRS/Sepsis Source TBD Despite the UA being positive for WBC and leukocyte esterase, he denies having any urinary symptoms SIRS criteria include Temp >101 / WBC >12 The CRP is elevated; he has non diabetic hyperglycemia Lactic acid is <2 NEW2S Score = 2 points = low risk Plan: admit to medical floor / telemetry / emperic Levofloxacin (choosen bc he has a PCN allergy) pending blood cx, procalcitonin MRSA and COVID-19 (ordered in ER) / IVF/ Acetaminophen PRN for fever / target MAP 65 to 70 / f/u Is and Os with target UOP of atleast 0.5 ml/kg/H / target serum glucose 140-180 while acutely ill / code status FULL 2. Hypoxia ? / R/O COVID-19 Cause TBD Despite his denial of URI symptoms his PO2 is 67 ABG: respiratory alkalosis w compensated metabolic acidosis The chest xray and respiratory panel are negative, the LFTs are wnl except alk P, CRP is elevated and the LDH is wnl. The D-dimer is elevated but is below the age adjusted cut off which is 860 for him. He has a hx of thrombocytopenia Plan: monitor vitals / f/u COVID-19, trop, PT/PTT, Fibrinogen, CK, ferritin & procalcitonin 3. Conjunctivitis. Likely viral - Visine eye drops 4. Chronic CAD / dyslipidemia - resume atorvastatin, carvedilol once meds are reconciled 5. Atrial fibrillation - resume amiodarone, apixaban once meds are reconciled 6. Chronic HTN - resume candesartan, carvedilol, nifedipine once meds are reconciled 7. CKD 3 - f/u BMP Hypothyroidism - resume levothyroxine once meds are reconciled Dementia / microvascular ischemic disease - resume memantine & donepezil once meds are reconciled DVT PROPHYLAXIS: Elquis DISPOSITION: Likely home after more than 2 midnight stay Home Medications Scheduled Amiodarone HCl (Amiodarone HCl) 100 Mg Tab, 100 MG PO DAILY Apixaban (Eliquis) 2.5 Mg Tab, 2.5 MG PO BID Atorvastatin Calcium (Atorvastatin Calcium) 20 Mg Tab, 20 MG PO DAILY Candesartan Cilexetil (Candesartan Cilexetil) 8 Mg Tablet, 8 MG PO BID Carvedilol (Carvedilol) 25 Mg Tab, 25 MG PO BID Ergocalciferol (Vitamin D2) (Vitamin D2) 50,000 Units Cap, 1,250 MCG PO MTHLY Levothyroxine Sodium (Levothyroxine Sodium) 75 Mcg Tablet, 75 MCG PO DAILY Memantine HCl/Donepezil HCl (Namzaric 28 mg-10 mg Capsule) 1 Each Cap.spr.24, 1 CAP PO QPM Nifedipine (Nifedipine ER) 30 Mg Tablet.er, 30 MG PO DAILY Allergies Coded Allergies: TAPE (Verified Allergy, Intermediate, BANDAIDS - RASH, 11/08/16) Penicillins (Verified Allergy, Unknown, sore throat, 10/12/19) A-FIB/CHADSVASC A-FIB History Current/History of A-Fib/PAF?: Yes Current PO Anticoag Therapy: Yes TRINI HERNANDEZ MD Oct 12, 2019 04:40
[2019-10-12] MEDS ORDERED: TETRAHYDROZOLINE OPHTH 0.05% 15 ML BTL OU PRN (06:00)
[2019-10-12] MEDS: LevoFLOXacin IV 750 MG in IV 1 EA IV SCH (06:13)
[2019-10-12 06:21] LABS: HEMATOCRIT 36.5 % (42.0-52.0); HEMOGLOBIN 12.2 g/dl (13.5-17.5); MEAN CORPUSCULAR HEMOGLOBIN 30.9 pg (27.0-33.0); MEAN CORPUSCULAR HGB CONC 33.4 g/dl (32.0-36.5); MEAN CORPUSCULAR VOLUME 92.4 fl (80.0-96.0); PLATELET COUNT, AUTOMATED 122 10^3/uL (150-450); RED BLOOD COUNT 3.95 10^6/uL (4.30-6.10); WHITE BLOOD COUNT 24.7 10^3/uL (4.0-10.0)
[2019-10-12 06:30] LABS: INR 1.27; PROTHROMBIN TIME 15.6 SECONDS (11.8-14.0)
[2019-10-12 06:49] LABS: CALCIUM LEVEL 8.6 MG/DL (8.8-10.2); CREATININE FOR GFR 1.57 MG/DL (0.70-1.30); GLOMERULAR FILTRATION RATE 44.8 (>35); POTASSIUM SERUM 3.7 MEQ/L (3.5-5.1)
[2019-10-12] MEDS ORDERED: VANCOMYCIN HCL 1,000 MG, VIAL MATE ADAPTER 1 EACH in D5W 250 ML IV ONE (07:00)
[2019-10-12 07:02] LABS: CPK CREATINE PHOSPHOKINASE 176 U/L (39-308); FERRITIN 469 NG/ML (26-388); TROPONIN I < 0.02 NG/ML (< 0.10)
[2019-10-12] MEDS ORDERED: AMIO200T PO (07:48)
[2019-10-12] MEDS ORDERED: NITR4TASL SL (08:02)
[2019-10-12] MEDS: CANDESARTAN 4MG TABLET PO SCH ×2 (09:00→21:10)
[2019-10-12] MEDS ORDERED: NITROGLYCERIN 0.4 MG SUBL TABLET SL PRN (10:15)
[2019-10-12] MEDS: CARVedilol 12.5 MG TAB PO SCH ×2 (10:41→21:11)
[2019-10-12] MEDS: AMIODARONE 200 MG TAB (PACERONE) PO SCH (10:42)
[2019-10-12] MEDS: APIXABAN 2.5 MG TAB (ELIQUIS) PO SCH ×2 (10:42→21:11)
[2019-10-12] MEDS: LEVOTHYROXINE 75MCG TABLET (0.075MG) PO SCH (10:43)
[2019-10-12] MEDS: NIFEdipine 30 MG XL TAB PO SCH (10:43)
--- NOTE | 2019-10-12 16:47 | IPNPDOC ---
Text Note Date of Service The patient was seen on 10/12/19. NOTE S: Pt examined at bedside. Reports he came in for chest congestion and left eye discomfort both which are improving today. Still having mild cough and shortness of breath. Per staff, no issues overnight. Denies chest pain, palpitations, edema, n/v, abd pain. PE: Vitals: see below General: NAD, A&Ox3, resting comfortably HEENT: NCAT, EOMI, anicteric sclera, MMM CV: RRR, no murmurs or clicks or rub. No edema RESP: CTAB, no w/r/r/ ABD: soft, NT, ND. Benign EXTREMITIES: 2+ radial pulses b/l, able to move all extremities NEURO: no focal deficits or acute changes A/P: 84-yo M with extensive PMH including CAD s/p stenting, CVA, chronic Afib on Eliquis, and colon cancer s/p resection presented for chest congestion and left eye discomfort. Denies sick contacts, changes in meds, or travel. Found to have 101.7 fever and WBC 26 on admission with negative CXR. 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 VS,Fishbone, I+O VS, Fishbone, I+O Laboratory Tests 10/12/19 01:53 10/12/19 06:08 Vital Signs Date Time Temp Pulse Resp B/P (MAP) Pulse Ox O2 Delivery O2 Flow Rate FiO2 10/12/19 16:00 100.6 82 18 115/53 (73) 95 Room Air I&O- Last 24 Hours up to 6 AM 10/12/19 06:00 Intake Total 500 ml Balance 500 ml GME ATTESTATION GME ATTESTATION My faculty preceptor for this patient encounter was physically present during the encounter and was fully available. All aspects of the patient interview, examination, medical decision making process, and medical care plan development were reviewed and approved by the faculty preceptor. The faculty preceptor is aware and concurs with the plan as stated in the body of this note and will attest to such by his/her cosignature. ATTENDING NOTE I, Tom Taylor, have independently examined this patient and performed my own physical exam, as well as reviewed the documentation and edited where necessary. I have discussed in detail with the resident / student the findings and plan of treatment as documented by the resident / student and edited their note. I agree with their findings and treatment plan and have edited their documentation. I will continue to follow the patient during this hospital stay. HUSAM HODGSON DO Oct 12, 2019 16:46 TOM TAYLOR MD Oct 12, 2019 16:58
[2019-10-12] MEDS: DONEPEZIL 5 MG TAB PO SCH (21:11)
[2019-10-12] MEDS: ATORVASTATIN 20 MG TAB PO SCH (21:11)
[2019-10-12] MEDS: MEMANTINE 5MG TABLET (NAMENDA) PO SCH (21:11)
[2019-10-13] VITALS (19 sets, daily range): BP systolic 105–120; BP diastolic 50–59; O2SAT 92–97
[2019-10-13 05:04] LABS: HEMATOCRIT 32.7 % (42.0-52.0); HEMOGLOBIN 11.3 g/dl (13.5-17.5); MEAN CORPUSCULAR HEMOGLOBIN 31.7 pg (27.0-33.0); MEAN CORPUSCULAR HGB CONC 34.6 g/dl (32.0-36.5); MEAN CORPUSCULAR VOLUME 91.6 fl (80.0-96.0); PLATELET COUNT, AUTOMATED 121 10^3/uL (150-450); RED BLOOD COUNT 3.57 10^6/uL (4.30-6.10); WHITE BLOOD COUNT 26.9 10^3/uL (4.0-10.0)
[2019-10-13 05:34] LABS: C REACTIVE PROTEIN QUANTITATIV 22.2 MG/DL (0.00-0.30); CREATININE FOR GFR 1.65 MG/DL (0.70-1.30); GLOMERULAR FILTRATION RATE 42.3 (>35); POTASSIUM SERUM 3.9 MEQ/L (3.5-5.1)
[2019-10-13] MEDS: LEVOTHYROXINE 75MCG TABLET (0.075MG) PO SCH (05:35)
[2019-10-13] MEDS: CARVedilol 12.5 MG TAB PO SCH ×2 (08:09→20:37)
[2019-10-13] MEDS: APIXABAN 2.5 MG TAB (ELIQUIS) PO SCH ×2 (08:10→20:37)
[2019-10-13] MEDS: NIFEdipine 30 MG XL TAB PO SCH (08:10)
[2019-10-13] MEDS: CANDESARTAN 4MG TABLET PO SCH ×2 (08:10→20:36)
[2019-10-13] MEDS: AMIODARONE 200 MG TAB (PACERONE) PO SCH (08:11)
[2019-10-13] MEDS: metroNIDAZOLE 500 MG in IV 1 EA IV SCH ×3 (08:11→23:26)
--- NOTE | 2019-10-13 09:04 | ECGEPIP ---
[facility] - ED Test Date: 2019-10-12 Pat Name: HOLGER CORTES Department: Room: [place] [address] Gender: Male Aerial Gunner: WENDY : 1935 Requested By: KEITH DAUGHERTY Order Number: [id number] Reading MD: Skylar Mcintyre Measurements Intervals [place] Rate: 80 P: 65 CT: 159 QRS: 5 QRSD: 89 T: 39 QT: 297 QTc: 343 Interpretive Statements SINUS RHYTHM NONSPECIFIC T-WAVE ABNORMALITY SHORTER QTC 09/15/17 Electronically Signed on 10-13-2019 9:04:39 EDT by Skylar Mcintyre
[2019-10-13] MEDS ORDERED: SLF 3 ML SYR IV PRN (11:30)
--- NOTE | 2019-10-13 13:35 | REP ---
REASON: Cough and congestion. COMPARISON: Multiple, the latest 03/18/2019. The mediastinum and pulmonary hilar are unchanged. There is no evidence of a mass or adenopathy. A small pericardial effusion has developed since the last exam and minimal bilateral pleural effusions also have developed. The imaged osseous structures and imaged upper abdomen are unchanged. Evaluation of the lung sylvester show no new abnormal nodules, masses, or opacities. Bibasilar fibrotic and/or subsegmental atelectatic changes are present. There is cylindrical bronchiectasis status quo. There are no new abnormal nodules, masses, or opacities. IMPRESSION: There is no evidence of acute disease. Stable appearing chronic changes as described above. Electronically Signed by Daniel Washington DO 10/13/2019 03:28 P
--- NOTE | 2019-10-13 14:17 | IPNPDOC ---
Text Note Date of Service The patient was seen on 10/13/19. NOTE S: Pt examined at bedside. Still having fevers of 100.6 yesterday evening, rising WBC, but clinically improving. Less chest congestion, feeling more energetic. No reported events overnight. PE: Vitals: see below General: NAD, A&Ox3, sitting in bed comfortably HEENT: NCAT, EOMI, anicteric sclera, MMM CV: RRR, no murmurs or clicks or rub. No edema RESP: CTAB, no w/r/r/ ABD: soft, NT, ND. Benign EXTREMITIES: 2+ radial pulses b/l, able to move all extremities NEURO: no focal deficits or acute changes A/P: 84-yo M with extensive PMH including CAD s/p stenting, CVA, chronic Afib on Eliquis, and colon cancer s/p resection presented for chest congestion and left eye discomfort. Denies sick contacts, changes in meds, or travel. Found to have 101.7 fever and WBC 26 on admission with negative CXR. Sepsis - source unclear; likely respiratory - clinically improving, less chest congestion - fevers 100.6, rising wbc and crp, continuing to spike fevers s/p 1 day vanc & levaquin - Respiratory panel & initial CXR negative - MRSA PCR & COVID negative - blood cultures negative thus far; Procal 0.21 - Chest CT is unremarkable; urine & blood cx pending - start Flagyl to cover anaerobes, continue Levaquin day 2; s/p Vanc x1 - trend inflamm markers Mild rise in Cr in setting of CKD III - baseline Cr 1.4-1.5; up to 1.65 today - monitor I/O and trend - hold nephrotoxins CAD/DLD - s/p PTCA to RCA and LAD and RCA stenting - continue statin Dementia - continue Aricept & Namenda 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 VS,Fishbone, I+O VS, Fishbone, I+O Laboratory Tests 10/13/19 04:51 Vital Signs Date Time Temp Pulse Resp B/P (MAP) Pulse Ox O2 Delivery O2 Flow Rate FiO2 10/13/19 11:00 94 Room Air 10/13/19 08:10 120/59 10/13/19 08:09 74 10/13/19 08:00 97.6 18 I&O- Last 24 Hours up to 6 AM 10/13/19 06:00 Intake Total 720 ml Output Total 250 ml Balance 470 ml GME ATTESTATION GME ATTESTATION My faculty preceptor for this patient encounter was physically present during the encounter and was fully available. All aspects of the patient interview, examination, medical decision making process, and medical care plan development were reviewed and approved by the faculty preceptor. The faculty preceptor is aware and concurs with the plan as stated in the body of this note and will attest to such by his/her cosignature. ATTENDING NOTE I, Michelle Larsen, have independently examined this patient and perfo rmed my own physical exam, as well as reviewed the documentation and edited where necessary. I have discussed in detail with the resident / student the findings and plan of treatment as documented by the resident / student and edited their note. I agree with their findings and treatment plan and have edited their documentation. Today Mr. Brown's Covid testing resulted and it was negative. We ordered a chest CT that was completely without pathology and so we will continue to monitor him on levaquin/flagyl given persistently elevated inflammatory markers and if persistent will consider broadening the workup for fever on unknown origin. We will continue to follow the patient during this hosp ital stay. HUSAM HODGSON DO Oct 13, 2019 14:17 MICHELLE LARSEN MD Oct 13, 2019 19:33
[2019-10-13] MEDS: SLF 3 ML SYR IV SCH ×2 (15:32→20:37)
[2019-10-13] MEDS: DONEPEZIL 5 MG TAB PO SCH (20:36)
[2019-10-13] MEDS: MEMANTINE 5MG TABLET (NAMENDA) PO SCH (20:36)
[2019-10-13] MEDS: ATORVASTATIN 20 MG TAB PO SCH (20:37)
[2019-10-14] VITALS (22 sets, daily range): BP systolic 119–143; BP diastolic 58–76; O2SAT 86–99
[2019-10-14] MEDS: NS 1,000 ML IV SCH ×2 (00:51→13:45)
[2019-10-14] MEDS: LevoFLOXacin IV 750 MG in IV 1 EA IV SCH (06:15)
[2019-10-14] MEDS: LEVOTHYROXINE 75MCG TABLET (0.075MG) PO SCH (06:15)
[2019-10-14] MEDS: SLF 3 ML SYR IV SCH ×3 (06:16→20:41)
[2019-10-14 06:23] LABS: HEMATOCRIT 33.1 % (42.0-52.0); HEMOGLOBIN 11.1 g/dl (13.5-17.5); MEAN CORPUSCULAR HEMOGLOBIN 30.7 pg (27.0-33.0); MEAN CORPUSCULAR HGB CONC 33.5 g/dl (32.0-36.5); MEAN CORPUSCULAR VOLUME 91.4 fl (80.0-96.0); PLATELET COUNT, AUTOMATED 138 10^3/uL (150-450); RED BLOOD COUNT 3.62 10^6/uL (4.30-6.10); WHITE BLOOD COUNT 16.4 10^3/uL (4.0-10.0)
[2019-10-14 06:45] LABS: C REACTIVE PROTEIN QUANTITATIV 15.6 MG/DL (0.00-0.30); CALCIUM LEVEL 8.4 MG/DL (8.8-10.2); CREATININE FOR GFR 1.86 MG/DL (0.70-1.30); GLOMERULAR FILTRATION RATE 36.9 (>35); POTASSIUM SERUM 3.8 MEQ/L (3.5-5.1)
[2019-10-14] MEDS: CARVedilol 12.5 MG TAB PO SCH ×2 (08:51→20:40)
[2019-10-14] MEDS: NIFEdipine 30 MG XL TAB PO SCH (08:51)
[2019-10-14] MEDS: metroNIDAZOLE 500 MG in IV 1 EA IV SCH ×2 (08:52→15:29)
[2019-10-14] MEDS: AMIODARONE 200 MG TAB (PACERONE) PO SCH (08:52)
[2019-10-14] MEDS: CANDESARTAN 4MG TABLET PO SCH ×2 (08:52→20:40)
[2019-10-14] MEDS: APIXABAN 2.5 MG TAB (ELIQUIS) PO SCH ×2 (08:52→20:40)
--- NOTE | 2019-10-14 10:17 | REP ---
REASON FOR EXAM: Decreased renal function. COMPARISON EXAM: 06/14/2008. The right kidney measures 10.6 x 5.0 x 5.8 cm and left kidney measures 11.4 x 4.9 x 4.8 cm. The renal cortical echoes are diffusely increased compared to the prior exam. Cortical and medullary differentiation is maintained. Once again, there is increased renal sinus echoes, but these have increased slightly from the prior exam. There is bilateral renal cortical thinning, there are no solid masses. Seen arising from the inferior pole of the right kidney there is a round 1.3 cm size anechoic structure which exhibits posterior wall enhancement and increased through transmission consistent with a cyst. In the upper pole of the right kidney there is a 1 cm sized echogenic focus which shows no increased through transmission or shadowing. This represents a change from the prior exam. In the upper pole of the left kidney there is a 1.8 cm sized anechoic structure which exhibits posterior wall enhancement and increased through transmission. In the lower pole of the left kidney there is a 1.0 cm sized anechoic structure which exhibits posterior wall enhancement and increased through transmission, however, it is not completely anechoic. In addition, also seen in the inferior pole left kidney there is a hypoechoic 1.8 cm sized structure having a more solid appearance. IMPRESSION: 1. There is evidence of both cystic changes bilaterally and evidence of a solid lesion or possibly hyperdense cyst in the left kidney as described above. This is seen in conjunction with chronic renal changes as described above. Prior chest CT did not image the aforementioned findings and if the patient is experiencing decreasing renal function I would suggest pre and post gadolinium enhanced renal MRI for further evaluation particularly of the more solid appearing left renal lesion. This is provided the patient's GFR is suitable for at least half dosed gadolinium enhancement. 2. 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 Electronically Signed by Daniel Washington DO 10/14/2019 10:25 A
--- NOTE | 2019-10-14 13:33 | IPNPDOC ---
Text Note Date of Service The patient was seen on 10/14/19. NOTE S: Pt examined at bedside. Feels improved and almost back to his normal. Chest congestion now is minimal. No reported events overnight. No cp/dyspnea/abd pain/n/v. PE: Vitals: see below General: NAD, A&Ox3, resting comfortably HEENT: NCAT, EOMI, anicteric sclera, MMM CV: RRR, no murmurs or clicks or rub. No edema RESP: CTAB, no w/r/r/ ABD: soft, NT, ND. Benign EXTREMITIES: 2+ radial pulses b/l, able to move all extremities NEURO: no focal deficits or acute changes A/P: 84-yo M with extensive PMH including CAD s/p stenting, CVA, chronic Afib on Eliquis, and colon cancer s/p resection presented for chest congestion and left eye discomfort. Denies sick contacts, changes in meds, or travel. Found to have 101.7 fever and WBC 26 on admission with negative imaging. Sepsis - source unclear; likely respiratory vs UTI - clinically improving, came in for chest congestion. No urinary complaints - w/u only + for UA: Pseudomonas aeruginosa & Corynebacterium - blood cultures negative thus far; Procal 0.21 - improving on current regimen: continue Flagyl Day #2 to cover anaerobes, continue Levaquin day #2; s/p Vanc x1 - trend inflamm markers; abx will cover UA & respiratory YOSVANY in setting of CKD III - baseline Cr 1.4-1.5; continuing to rise - FeNA = pre-renal, likely 2/2 transient hypotension & possible contrast-induced nephropathy s/p CT chest yesterday - monitor I/O, gentle IVF, trend - hold nephrotoxins CAD/DLD - s/p PTCA to RCA and LAD and RCA stenting - continue statin Dementia - continue Aricept & Namenda 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 VS,Fishbone, I+O VS, Fishbone, I+O Laboratory Tests 10/14/19 05:57 Vital Signs Date Time Temp Pulse Resp B/P (MAP) Pulse Ox O2 Delivery O2 Flow Rate FiO2 10/14/19 10:00 93 Room Air 10/14/19 08:51 128/76 10/14/19 08:51 80 10/14/19 08:00 98.1 18 I&O- Last 24 Hours up to 6 AM 10/14/19 06:00 Intake Total 630 ml Output Total 0 ml Balance 630 ml GME ATTESTATION GME ATTESTATION My faculty preceptor for this patient encounter was physically present during the encounter and was fully available. All aspects of the patient interview, examination, medical decision making process, and medical care plan development were reviewed and approved by the faculty preceptor. The faculty preceptor is aware and concurs with the plan as stated in the body of this note and will attest to such by his/her cosignature. ATTENDING NOTE I, Michelle Larsen, have independently examined this patient and performed my own physical exam, as well as reviewed the documentation and edited where necessary. I have discussed in detail with the resident / student the fin dings and plan of treatment as documented by the resident / student and edited their note. I agree with their findings and treatment plan and have edited their documentation. He is doing very well, has been afebrile, hemodynamically stable, with downtrending inflammatory indices and WBCs while on antibiotics for pseudomonas UTI. We will continue to follow the patient during this hospital stay. HUSAM HODGSON DO Oct 14, 2019 13:33 MICHELLE LARSEN MD Oct 15, 2019 08:23
[2019-10-14] MEDS: ATORVASTATIN 20 MG TAB PO SCH (20:40)
[2019-10-14] MEDS: MEMANTINE 5MG TABLET (NAMENDA) PO SCH (20:40)
[2019-10-14] MEDS: DONEPEZIL 5 MG TAB PO SCH (20:40)
[2019-10-15] VITALS (9 sets, daily range): BP systolic 107–137; BP diastolic 53–63; O2SAT 88–97
[2019-10-15] MEDS: NS 1,000 ML IV SCH (00:50)
[2019-10-15] MEDS: metroNIDAZOLE 500 MG in IV 1 EA IV SCH ×2 (00:51→07:38)
[2019-10-15] MEDS: LEVOTHYROXINE 75MCG TABLET (0.075MG) PO SCH (05:55)
[2019-10-15] MEDS: SLF 3 ML SYR IV SCH (05:56)
[2019-10-15 06:36] LABS: HEMATOCRIT 33.1 % (42.0-52.0); MEAN CORPUSCULAR HEMOGLOBIN 30.1 pg (27.0-33.0); MEAN CORPUSCULAR HGB CONC 33.2 g/dl (32.0-36.5); MEAN CORPUSCULAR VOLUME 90.4 fl (80.0-96.0); PLATELET COUNT, AUTOMATED 142 10^3/uL (150-450); RED BLOOD COUNT 3.66 10^6/uL (4.30-6.10); WHITE BLOOD COUNT 9.3 10^3/uL (4.0-10.0)
[2019-10-15 06:58] LABS: CALCIUM LEVEL 8.1 MG/DL (8.8-10.2); CREATININE FOR GFR 1.46 MG/DL (0.70-1.30); GLOMERULAR FILTRATION RATE 48.7 (>35); POTASSIUM SERUM 3.6 MEQ/L (3.5-5.1)
[2019-10-15] MEDS: CANDESARTAN 4MG TABLET PO SCH (08:36)
[2019-10-15] MEDS: APIXABAN 2.5 MG TAB (ELIQUIS) PO SCH (08:37)
[2019-10-15] MEDS: CARVedilol 12.5 MG TAB PO SCH (08:37)
[2019-10-15] MEDS: AMIODARONE 200 MG TAB (PACERONE) PO SCH (08:37)
[2019-10-15] MEDS: NIFEdipine 30 MG XL TAB PO SCH (08:37)
[2019-10-15] MEDS ORDERED: LEVO750T13 PO (11:23)
--- NOTE | 2019-10-15 18:51 | DS.PDOC ---
Discharge Summary General Date of Admission Oct 12, 2019 at 04:30 Date of Discharge 10/15/2019 Primary Care Physician: Aditya Brewster M.D. Attending Physician: GEORGI LARSEN MD Discharge Summary PROCEDURES PERFORMED DURING STAY: [None]. DISCHARGE DIAGNOSES: 1. . HISTORY OF PRESENT ILLNESS: . HOSPITAL COURSE: . DISCHARGE MEDICATIONS: Please see below. ALLERGIES: Please see below. PHYSICAL EXAMINATION ON DISCHARGE: VITAL SIGNS: Please see below. GENERAL: NAD, A&Ox3 HEENT: nc, at, EOMI NECK: supple, no JVD CARDIOVASCULAR EXAMINATION: RRR, normal S1 S2 RESPIRATORY EXAMINATION: CTAB, no w/r/r ABDOMINAL EXAMINATION: soft, nt/nd, normoactive bowel sounds EXTREMITIES: 2+ pulses b/l, no cyanosis or edema SKIN: no visible rash or lesions, warm, dry NEUROLOGICAL EXAMINATION: no focal deficits, able to move all extremities LABORATORY DATA: Please see below. IMAGING: PROGNOSIS: good ACTIVITY: [As tolerated]. DIET: consistent carb, 2g sodium DISPOSITION: home DISCHARGE INSTRUCTIONS: 1. Follow-up with PCP within a week 2. Return to ER for emergency DISCHARGE CONDITION: [Stable]. TIME SPENT ON DISCHARGE: Greater than 35 minutes. Vital Signs/I&Os Vital Signs Date Time Temp Pulse Resp B/P (MAP) Pulse Ox O2 Delivery O2 Flow Rate FiO2 10/15/19 12:00 97.6 63 18 133/59 (83) 100 Room Air I&O- Last 24 Hours up to 6 AM 10/15/19 06:00 Intake Total 3370 ml Output Total 300 ml Balance 3070 ml Laboratory Data Labs 24H Laboratory Tests 2 10/15/19 06:19: Nucleated Red Blood Cells % (auto) 0.0, Anion Gap 7L, Glomerular Filtration Rate 48.7, Calcium Level 8.1L CBC/BMP Laboratory Tests 10/15/19 06:19 Microbiology Microbiology 10/12/19 Urine Culture - Final, Complete Pseudomonas Aeruginosa Corynebacterium Species 10/12/19 Coronavirus COVID-19 PCR ([facility]) - Final, Complete 10/12/19 Respiratory Panel (PCR) - Final, Complete 10/12/19 Blood Culture - Preliminary, Resulted No Growth after 72 hours. All specime... Discharge Medications Scheduled Amiodarone HCl (Amiodarone HCl) 200 Mg Tablet, 100 MG PO DAILY, (Reported) Apixaban (Eliquis) 2.5 Mg Tab, 2.5 MG PO BID, (Reported) Atorvastatin Calcium (Atorvastatin Calcium) 20 Mg Tab, 20 MG PO QHS, (Reported) Candesartan Cilexetil (Candesartan Cilexetil) 8 Mg Tablet, 8 MG PO BID, (Reported) Carvedilol (Carvedilol) 25 Mg Tab, 25 MG PO BID, (Reported) Ergocalciferol (Vitamin D2) (Vitamin D2) 50,000 Units Cap, 50,000 UNIT PO QMONTH, (Reported) Levofloxacin (Levofloxacin) 750 Mg Tablet, 1 TAB PO Q2D Levothyroxine Sodium (Levothyroxine Sodium) 75 Mcg Tablet, 75 MCG PO DAILY, (Reported) Memantine HCl/Donepezil HCl (Namzaric 28 mg-10 mg Capsule) 1 Each Cap.spr.24, 1 CAP PO QHS, (Reported) Nifedipine (Nifedipine ER) 30 Mg Tablet.er, 30 MG PO DAILY, (Reported) Scheduled PRN Nitroglycerin (Nitrostat) 0.4 Mg Tab.subl, 0.4 MG SL NITRO PRN for CHEST PAIN, (Reported) Allergies Coded Allergies: TAPE (Verified Allergy, Intermediate, BANDAIDS - RASH, 11/08/16) Penicillins (Verified Allergy, Unknown, sore throat, 10/12/19) GME ATTESTATION GME ATTESTATION My faculty preceptor for this patient encounter was physically present during the encounter and was fully available. All aspects of the patient interview, examination, medical decision making process, and medical care plan development were reviewed and approved by the faculty preceptor. The faculty preceptor is aware and concurs with the plan as stated in the body of this note and will attest to such by his/her cosignature. HUSAM HODGSON DO Oct 15, 2019 18:51
== END 2019-10-15 13:26 | disposition home or self-care (01) | DRG 872 ==
LOC: M ED 01:30 → M ED INP 04:30 → ENRESERVDT 05:10 → ENRESERVTM 05:10 → M ICU 05:38 → M PCU 15:15 → M MSPAV 10-13 11:33
PROVIDERS: ADMIT Internal Medicine; ATTEND Internal Medicine
DX: A41.9 Sepsis, unspecified organism (principal); I48.20 Chronic atrial fibrillation, unspecified; N39.0 Urinary tract infection, site not specified; R09.02 Hypoxemia; I25.10 Atherosclerotic heart disease of native coronary artery without angina pectoris; E78.5 Hyperlipidemia, unspecified; F03.90 Unspecified dementia, unspecified severity, without behavioral disturbance, psychotic disturbance, mood disturbance, and anxiety; I12.9 Hypertensive chronic kidney disease with stage 1 through stage 4 chronic kidney disease, or unspecified chronic kidney disease; M10.9 Gout, unspecified; N18.3 Chronic kidney disease, stage 3 (moderate); Z66 Do not resuscitate; E03.9 Hypothyroidism, unspecified; D69.6 Thrombocytopenia, unspecified; H57.12 Ocular pain, left eye; I67.2 Cerebral atherosclerosis; M48.061 Spinal stenosis, lumbar region without neurogenic claudication; E55.9 Vitamin D deficiency, unspecified; Z85.038 Personal history of other malignant neoplasm of large intestine; Z90.49 Acquired absence of other specified parts of digestive tract; Z79.01 Long term (current) use of anticoagulants; Z95.5 Presence of coronary angioplasty implant and graft; Z79.899 Other long term (current) drug therapy; Z88.0 Allergy status to penicillin; Z91.048 Other nonmedicinal substance allergy status; Z86.73 Personal history of transient ischemic attack (TIA), and cerebral infarction without residual deficits; Z11.59 Encounter for screening for other viral diseases

== ENCOUNTER → 2019-10-23 | Outpatient (REF) | payer MEDICARE, OTHER ==
[~2019-10-23] MED LIST changes: +AMIO200T PO; +CAND8TAB PO; +LEVO750T13 PO; +LEVO75TA4 PO; +NAMZ1CAP2 PO; +NIFE30TA50 PO; +NITR4TASL SL
[2019-10-23 13:47] LABS: BASO # 0.1 10^3/uL (0.0-0.2); BASO % 0.7 % (0.0-1.0); EOS # 0.1 10^3/uL (0.0-0.5); EOS % 0.9 % (0.0-3.0); HEMATOCRIT 38.4 % (42.0-52.0); HEMOGLOBIN 12.9 g/dl (13.5-17.5); LYMPH # 1.1 10^3/uL (1.5-5.0); LYMPH % 12.5 % (24.0-44.0); MEAN CORPUSCULAR HEMOGLOBIN 31.3 pg (27.0-33.0); MEAN CORPUSCULAR HGB CONC 33.6 g/dl (32.0-36.5); MEAN CORPUSCULAR VOLUME 93.2 fl (80.0-96.0); MONO # 0.7 10^3/uL (0.0-0.8); MONO % 7.6 % (0.0-5.0); NEUTROPHILS # 7.1 10^3/uL (1.5-8.5); NEUTROPHILS % 77.4 % (36.0-66.0); PLATELET COUNT, AUTOMATED 250 10^3/uL (150-450); RED BLOOD COUNT 4.12 10^6/uL (4.30-6.10); WHITE BLOOD COUNT 9.1 10^3/uL (4.0-10.0)
[2019-10-23 13:57] LABS: APPEARANCE, URINE CLEAR (CLEAR); BACTERIA, URINE AUTO NEGATIVE (NEGATIVE); BILIRUBIN, URINE AUTO NEGATIVE (NEGATIVE); BLOOD, URINE BLOOD NEGATIVE (NEGATIVE); COLOR, URINE YELLOW (YELLOW); GLUCOSE, URINE (UA) AUTO NEGATIVE (NEGATIVE); KETONE, URINE AUTO NEGATIVE (NEGATIVE); LEUKOCYTE ESTERASE, URINE AUTO NEGATIVE (NEGATIVE); MUCUS, URINE SMALL (NEGATIVE); NITRITE, URINE AUTO NEGATIVE (NEGATIVE); PROTEIN, URINE AUTO NEGATIVE (NEGATIVE); RBC, URINE AUTO 0 /HPF (0-3); SPECIFIC GRAVITY URINE AUTO 1.016 (1.002-1.035); SQUAMOUS EPITHELIAL CELL UR AU 0 /HPF (0-6); UROBILINOGEN, URINE AUTO 0.2 mg/dL (0.0-2.0); WBC, URINE AUTO 0 /HPF (0-3)
[2019-10-23 14:06] LABS: HEMOGLOBIN A1c 5.9 %
[2019-10-23 14:13] LABS: TOTAL PROTEIN,RANDOM URINE 29.1 MG/DL (0.0-12.0)
[2019-10-23 14:24] LABS: ALBUMIN 3.6 GM/DL (3.2-5.2); BILIRUBIN,TOTAL 0.7 MG/DL (0.2-1.0); CALCIUM LEVEL 8.5 MG/DL (8.8-10.2); CREATININE FOR GFR 1.53 MG/DL (0.70-1.30); FREE T4 1.31 NG/DL (0.76-1.46); GLOMERULAR FILTRATION RATE 46.2 (>35); POTASSIUM SERUM 4.1 MEQ/L (3.5-5.1); PTH INTACT 55.5 PG/ML (18.5-88.0); THYROID STIMULATING HORMONE 4.39 uIU/ML (0.358-3.740); TOTAL PROTEIN 6.9 GM/DL (6.4-8.2)
== END ==
LOC: M SFHCPLAZ 11:07
PROVIDERS: ATTEND Family Medicine
DX: N39.0 Urinary tract infection, site not specified (principal); N18.3 Chronic kidney disease, stage 3 (moderate); E03.9 Hypothyroidism, unspecified; Z79.899 Other long term (current) drug therapy
CPT/HCPCS: 36415; 80053; 81001; 82570; 82607; 83036; 83970; 84156; 84439; 84443; 85025; 85046; 87086; G0103

== ENCOUNTER → 2019-11-11 | Outpatient (CLI) | payer MEDICARE, OTHER ==
[~2019-11-11] MED LIST changes: +PROHANCE 279.3MG/ML 15ML VIAL As Ordered ONE
--- NOTE | 2019-11-11 14:19 | REP ---
MRI ABDOMEN WITH AND WITHOUT CONTRAST: COMPARISON: Ultrasound 10/14/2019. TECHNIQUE: Multiple sequences obtained in the axial and coronal planes prior to and following the intravenous administration of 8 mL ProHance. Several cysts are seen in the kidneys. There is an non-enhancing cyst medially in the right kidney mid aspect measuring 1.5 cm in diameter. Another nonenhancing cyst is seen in the right lower pole measuring 1.2 cm in diameter. A cyst with a few enhancing septations in the upper pole of the left kidney appears benign and measures 2 cm in diameter. There is an adjacent smaller nonenhancing cyst just posterior to that in the upper pole of the left kidney. There is a nonenhancing cyst in the lower pole of the left kidney measuring 1.4 cm in diameter. In the anterior aspect of the mid right kidney, there is a somewhat exophytic nodule, which demonstrates enhancement on initial postcontrast sequences with gradual washout on the more delayed sequences. It is relatively hypointense on both T1- and T2-weighted images. The enhancement is suspicious and a small carcinoma cannot be excluded. No other renal mass is seen. There is mild cortical thinning bilaterally. There is no hydronephrosis. No adenopathy or free fluid is seen in the visualized abdomen. The visualized portions of the liver, spleen, adrenals, and pancreas are unremarkable. There is no biliary dilatation or pancreatic duct dilatation. IMPRESSION: Bilateral renal cysts. Somewhat suspicious enhancing nodule anterior mid right kidney 1.3 cm in diameter. There is internal enhancement compatible with a solid nodule. This may represent a small renal cell carcinoma. Electronically Signed by Hemal Hancock MD 11/11/2019 03:33 P
== END ==
LOC: M RAD 10:03
PROVIDERS: ATTEND Family Medicine
DX: Q61.02 Congenital multiple renal cysts (principal); N28.89 Other specified disorders of kidney and ureter
CPT/HCPCS: 74183; A9576

== ENCOUNTER → 2019-12-02 | Outpatient (CLI) | payer MEDICARE, OTHER ==
[~2019-12-02] MED LIST changes: -PROHANCE 279.3MG/ML 15ML VIAL As Ordered ONE
== END ==
LOC: M PLALAB 13:52
PROVIDERS: ATTEND Physician Assistant
DX: I48.0 Paroxysmal atrial fibrillation (principal)

== ENCOUNTER → 2019-12-10 | Outpatient (REF) | payer MEDICARE, OTHER ==
[2019-12-10 15:17] LABS: ALBUMIN 3.8 GM/DL (3.2-5.2); CALCIUM LEVEL 8.5 MG/DL (8.8-10.2); CREATININE FOR GFR 1.39 MG/DL (0.70-1.30); GLOMERULAR FILTRATION RATE 51.6 (>35); PHOSPHORUS LEVEL 3.7 MG/DL (2.5-4.9); POTASSIUM SERUM 4.5 MEQ/L (3.5-5.1)
== END ==
LOC: M SFHCPLAZ 12:55
PROVIDERS: ATTEND Family Medicine
DX: I10 Essential (primary) hypertension (principal)

== ENCOUNTER → 2019-12-10 | Outpatient (CLI) | payer MEDICARE, OTHER ==
[~2019-12-10] MED LIST changes: +PROHANCE 279.3MG/ML 15ML VIAL As Ordered ONE
--- NOTE | 2019-12-10 23:14 | REP ---
MRI ABDOMEN WITH AND WITHOUT CONTRAST: There is a nonenhancing benign cyst medially in the right kidney mid aspect measuring 1.5 cm in diameter. Another nonenhancing cyst is seen in the lower pole of the right kidney 1.2 cm in maximum diameter. A benign nonenhancing cyst in the upper pole of the left kidney measures 2 cm in diameter. There is an adjacent smaller nonenhancing cyst a little more posteriorly in the upper pole of the left kidney. There is a nonenhancing benign cyst in the lower pole of the left kidney 1.4 cm in maximum diameter. In the anterior aspect of the mid right kidney, there is an exophytic nodule, which is mildly hypointense on T2-weighted images and isointense on T1-weighted images. There is mild enhancement of the wall of the nodule with mild internal linear enhancement, which is measurable. Small carcinoma cannot be excluded. There is no hydronephrosis. There is mild cortical thinning. No adenopathy or free fluid is seen in the visualized abdomen. The visualized liver, spleen, adrenals, and pancreas are unremarkable. IMPRESSION: Bilateral renal cysts. Somewhat suspicious nodule mid right kidney anteriorly measuring 1.3 cm in diameter. This demonstrates measurable internal enhancement. Small renal cell carcinoma cannot be excluded. Unreviewed
== END ==
LOC: M RAD 14:49
PROVIDERS: ATTEND Family Medicine
DX: Q61.02 Congenital multiple renal cysts (principal); N28.89 Other specified disorders of kidney and ureter; I10 Essential (primary) hypertension
CPT/HCPCS: 36415; 74183; 80069; A9576

== ENCOUNTER → 2020-02-29 | Outpatient (CLI) | payer MEDICARE, OTHER ==
[~2020-02-29] MED LIST changes: -AMIO200T PO; +AMIO200T3 PO; -ASPI81TA85 PO; +ASPI81TA86 PO; +CALC-211 PO; -CALCTAB7 PO; -PROHANCE 279.3MG/ML 15ML VIAL As Ordered ONE
[2020-02-29 15:51] LABS: HEMATOCRIT 40.3 % (42.0-52.0); MEAN CORPUSCULAR HEMOGLOBIN 30.7 pg (27.0-33.0); MEAN CORPUSCULAR HGB CONC 32.3 g/dl (32.0-36.5); PLATELET COUNT, AUTOMATED 186 10^3/uL (150-450); RED BLOOD COUNT 4.24 10^6/uL (4.30-6.10)
[2020-02-29 16:15] LABS: INR 1.08; PROTHROMBIN TIME 14.3 SECONDS (11.8-14.0)
[2020-02-29 16:20] LABS: CREATININE FOR GFR 1.88 MG/DL (0.70-1.30); GLOMERULAR FILTRATION RATE 36.4 (>35); POTASSIUM SERUM 4.6 MEQ/L (3.5-5.1)
== END ==
LOC: M PLALAB 13:59
PROVIDERS: ATTEND Physician Assistant
DX: Z01.812 Encounter for preprocedural laboratory examination (principal); C64.1 Malignant neoplasm of right kidney, except renal pelvis; Z79.01 Long term (current) use of anticoagulants

== ENCOUNTER → 2020-04-05 | Outpatient (CLI) | payer MEDICARE, OTHER ==
--- NOTE | 2020-04-11 15:06 | REP ---
CAROTID ULTRASOUND TECHNIQUE: Real-time ultrasound evaluation and duplex Doppler interrogation of the extracranial carotid vasculature is performed. FINDINGS: There is mild scattered plaquing bilaterally. There are normal flow velocities bilaterally in the internal carotid arteries. There is no compelling duplex Doppler or sonographic evidence of hemodynamically significant stenosis bilaterally. There is normal direction of flow in both vertebral arteries. RIGHT LEFT Peak systolic velocity ICA 117.2 cm/s 62.0 cm/s End diastolic velocity ICA 19.5 cm/s 15.1 cm/s Peak systolic velocity CCA 68.1 cm/s 61.8 cm/s Peak systolic velocity ECA 102.8 107.4 ICA/CCA ratio 1.7 1.0 IMPRESSION: Mild scattered plaquing and narrowing with no evidence of hemodynamically significant stenosis bilateral internal carotid arteries. MTDD
== END ==
LOC: M RAD 10:23
PROVIDERS: ATTEND Physician Assistant
DX: I65.23 Occlusion and stenosis of bilateral carotid arteries (principal)

== ENCOUNTER → 2020-04-26 | Outpatient (REF) | payer MEDICARE, OTHER ==
[2020-04-26 15:40] LABS: HEMOGLOBIN A1c 5.6 %
[2020-04-26 15:53] LABS: ALBUMIN 3.8 GM/DL (3.2-5.2); BILIRUBIN,TOTAL 0.5 MG/DL (0.2-1.0); CALCIUM LEVEL 8.8 MG/DL (8.8-10.2); CREATININE FOR GFR 1.97 MG/DL (0.70-1.30); FREE T4 1.21 NG/DL (0.76-1.46); GLOMERULAR FILTRATION RATE 34.4 (>35); POTASSIUM SERUM 4.5 MEQ/L (3.5-5.1); THYROID STIMULATING HORMONE 3.89 uIU/ML (0.358-3.740); TOTAL PROTEIN 6.8 GM/DL (6.4-8.2); URIC ACID 4.4 MG/DL (3.5-7.2)
== END ==
LOC: M SFHCPLAZ 12:02
PROVIDERS: ATTEND Nurse Practitioner Family
DX: N18.30 Chronic kidney disease, stage 3 unspecified (principal); E03.9 Hypothyroidism, unspecified; R73.01 Impaired fasting glucose; E78.5 Hyperlipidemia, unspecified; M10.9 Gout, unspecified
CPT/HCPCS: 36415; 80053; 80061; 83036; 84439; 84443; 84550; G0463

== ENCOUNTER → 2020-06-02 | Outpatient (CLI) | payer MEDICARE, OTHER | LOC: M PLALAB 14:50 | PROVIDERS: ATTEND Physician Assistant | DX: I48.0 Paroxysmal atrial fibrillation (principal) ==

== ENCOUNTER 2020-11-03 10:04 | Observation (INO) | payer MEDICARE, OTHER ==
[~2020-11-03] VITALS: Ht 175.3 cm; Wt 78.5 kg
--- NOTE | 2020-11-03 11:10 | REP ---
INDICATION: fever. COMPARISON: None. TECHNIQUE: Single portable AP view of the chest was performed. FINDINGS: There is no acute infiltrate or pulmonary edema. Lungs are clear. The heart is not significantly enlarged. There is calcification of the thoracic aorta. The mediastinal silhouette is unchanged.. The visualized osseous structures are intact. IMPRESSION: No acute pulmonary disease. <Electronically signed by Hemal Hancock > 11/03/20 [id number]
[2020-11-03] MEDS ORDERED: ZYLO300T6 PO (11:16)
[2020-11-03] MEDS ORDERED: SYNT88TA2 PO (11:16)
--- NOTE | 2020-11-03 11:16 | REP ---
INDICATION: altered. COMPARISON: Comparison MRI study is from March 23, 2014.. TECHNIQUE: Helical scanning is acquired. 5 mm axial images were reformatted. Coronal MPR images were generated. FINDINGS: Bone window settings demonstrate an intact bony calvarium. There is no evidence of skull fracture or incidental bony calvarial lesion. The visualized paranasal sinuses appear clear. No intraorbital abnormality is seen. On soft tissue window setting images; the lateral, third, and fourth ventricles are normal in size and position. Hancock-white differentiation pattern is normal above and below the tentorium. There are is no evidence of intracranial hemorrhage. No mass, edema, infarction, or midline shift is seen. No extra-axial fluid collection is appreciated. There is moderate vascular calcification in the distal internal carotid arteries bilaterally. Small-vessel atherosclerotic changes and generalized volume loss are noted. IMPRESSION: Diffuse moderate atrophy and vascular calcification. Small vessel changes. No acute intracranial abnormality.. <Electronically signed by Harmeet Muhammad > 11/03/20 [id number]
[2020-11-03 11:25] LABS: BASO # 0.1 10^3/uL (0.0-0.2); BASO % 0.3 % (0.0-1.0); EOS % 0.1 % (0.0-3.0); HEMATOCRIT 35.7 % (42.0-52.0); HEMOGLOBIN 11.7 g/dl (13.5-17.5); LYMPH % 4.9 % (24.0-44.0); MEAN CORPUSCULAR HEMOGLOBIN 30.1 pg (27.0-33.0); MEAN CORPUSCULAR HGB CONC 32.8 g/dl (32.0-36.5); MEAN CORPUSCULAR VOLUME 91.8 fl (80.0-96.0); MONO # 1.4 10^3/uL (0.0-0.8); MONO % 7.1 % (2.0-8.0); NEUTROPHILS # 17.2 10^3/uL (1.5-8.5); NEUTROPHILS % 86.3 % (36.0-66.0); PLATELET COUNT, AUTOMATED 130 10^3/uL (150-450); RED BLOOD COUNT 3.89 10^6/uL (4.30-6.10); WHITE BLOOD COUNT 19.9 10^3/uL (4.0-10.0)
[2020-11-03 11:45] LABS: ALBUMIN 3.5 GM/DL (3.2-5.2); BILIRUBIN,TOTAL 0.7 MG/DL (0.2-1.0); CALCIUM LEVEL 8.7 MG/DL (8.8-10.2); CREATININE FOR GFR 1.88 MG/DL (0.70-1.30); GLOMERULAR FILTRATION RATE 36.3 (>35); POTASSIUM SERUM 4.1 MEQ/L (3.5-5.1); TOTAL PROTEIN 6.6 GM/DL (6.4-8.2)
[2020-11-03] MEDS ORDERED: LevoFLOXacin IV 500 MG in IV 1 EA IV ONE (12:30)
--- NOTE | 2020-11-03 13:16 | REP ---
INDICATION: uti ?stone COMPARISON: CT chest 03/18/2019, MRI abdomen 12/10/2019. TECHNIQUE: CT Scan of the abdomen and pelvis was performed without intravenous contrast. Sagittal and coronal reconstruction images performed. FINDINGS: Lung bases: There are mild bibasilar fibro atelectatic changes. Liver: Grossly unremarkable. Gallbladder: Unremarkable. Spleen: Grossly unremarkable. Adrenals: Normal. Pancreas: Grossly unremarkable.. Kidneys: No hydronephrosis or nephrolithiasis. Ureters demonstrate no dilatation or calculus. Small cyst is again noted in the mid right kidney, as well as a few cysts in the left kidney. Small and large bowel: Grossly unremarkable. Free fluid: None. Abdominal aorta: No aneurysm. Adenopathy: None. Appendix: Not inflamed. Osseous structures: There are degenerative changes of the spine without compression deformity. Pelvis: No mass. No bladder calculus seen. IMPRESSION: No renal, ureteral or bladder calculus. No hydroureteronephrosis. <Electronically signed by Hemal Hancock > 11/03/20 [id number]
[2020-11-03 13:46] LABS: RSV AMPLIFICATION NEGATIVE (NEGATIVE)
[2020-11-03 15:55] LABS: INR 1.14; PROTHROMBIN TIME 14.9 SECONDS (12.5-14.3)
[2020-11-03 15:56] LABS: PARTIAL THROMBOPLASTIN TIME 38.5 SECONDS (24.2-38.5)
[2020-11-03 16:30] VITALS: BP 136/61
--- NOTE | 2020-11-03 17:13 | ECGEPIP ---
[facility] - ED Test Date: 2020-11-03 Pat Name: HOLGER CORTES Department: Room: - Gender: Male [employer]: JAILYN : 1935 Requested By: Skylar Mcintyre Order Number: [id number] Reading MD: Eliud Feliciano Measurements Intervals [place] Rate: 65 P: 58 ND: 162 QRS: -1 QRSD: 84 T: 56 QT: 438 QTc: 455 Interpretive Statements Normal sinus rhythm Nonspecific T wave abnormality Similar to tracing done 10-12-19 Electronically Signed on 11-03-2020 17:13:42 EDT by Eliud Feliciano
--- NOTE | 2020-11-03 17:53 | HPEPDOC ---
General Date of Admission 11/03/20 Date of Service: November 03, 2020 Chief Complaint The patient is a 85-year-old male admitted with a reason for visit of Weakness. Source: Family, RN/MD History of Present Illness 85-year-old male with history of dementia, CKD stage III, Atrial fibrillation, hypertension, hyperlipidemia, gout, hypothyroid, spinal stenosis, CAD status post stenting , presented to the ED for generalized weakness which gradually worsened over the past 3 days. As per who is at bedside, reported that he has been a little weak initially, but yesterday he was so weak that he couldn't sit up in bed. He couldn't stand up. He couldn't walk to the bathroom. He c ouldn't dress himself. also reports that he goes to the bathroom for urination but he frequently, which is a chronic issue. She denied any fever at home She further reported that seem a similar thing happened when he had a urinary tract infection last year. At baseline, patient is independent in his walking and is able to feed himself, able to dress himself. Patient himself denied any pain anywhere. He knew he was in the hospital but did not offer any complaints. In the ED, he had a low-grade fever of 100.3. His labs were significant with him. Elevated WBC of 12 19,000, and his UA was very dirty with positive nitrite and positive leukocyte esterase. He was admitted for urinary tract infection. Home Medications Scheduled Allopurinol (Zyloprim) 300 Mg Tablet, 300 MG PO DAILY, (Reported) Amiodarone HCl (Amiodarone HCl) 200 Mg Tablet, 100 MG PO DAILY, (Reported) Apixaban (Eliquis) 2.5 Mg Tab, 2.5 MG PO BID, (Reported) Atorvastatin Calcium (Atorvastatin Calcium) 20 Mg Tab, 20 MG PO DAILY, (Reported) Candesartan Cilexetil (Candesartan Cilexetil) 8 Mg Tablet, 8 MG PO BID, (Reported) Carvedilol (Carvedilol) 25 Mg Tab, 25 MG PO BID, (Reported) Ergocalciferol (Vitamin D2) (Vitamin D2) 50,000 Units Cap, 50,000 UNIT PO QMONTH, (Reported) TAKES 6TH OF EACH MONTH Levothyroxine Sodium (Synthroid) 88 Mcg Tablet, 88 MCG PO QAM, (Reported) Memantine HCl/Donepezil HCl (Namzaric 28 mg-10 mg Capsule) 1 Each Cap.spr.24, 1 CAP PO QHS, (Reported) Nifedipine (Nifedipine ER) 30 Mg Tablet.er, 30 MG PO DAILY, (Reported) Scheduled PRN Nitroglycerin (Nitrostat) 0.4 Mg Tab.subl, 0.4 MG SL NITRO PRN for CHEST PAIN, (Reported) Allergies Coded Allergies: TAPE (Verified Allergy, Intermediate, BANDAIDS - RASH, 11/08/16) Penicillins (Verified Adverse Reaction, Mild, sore throat, 11/03/20) Past Medical History Medical History CAD -S/P PTCA RCA + LAD 1983 AND RCA STENTING X2 - F/U C ATRIAL FIBRILLATION, CHRONIC OSTEOARTHRITIS DEMENTIA: MRI BRAIN EXTENSIVE MICROVASCULAR DISEASE HYPERTENSION HYPERLIPIDEMIA GOUT HYPOTHYROID SPINAL STENOSIS Lumber MITRAL VALVE DISEASE LEFT COLON CANCER RESECTION -2008 RIGHT CAROTID STENOSIS 60-65% -MRA NECK 01/2018 CKD STAGE 3 CHRONIC ANEMIA RIGHT RENAL MASS - CT GUIDED BIOPSY/MICROWAVE ABLATION - ANGIOMYOLIPOMA -CECILE in 03/2020 Bilateral vertebral artery stenosis/ microvascular ischemic disease Vitamin D deficiency Surgical History COLONOSCOPIES MULTIPLE. CT GUIDED RIGHT RENAL MASS BIOPSY AND MICROWAVE ABLATION 03/16/2020 Family History Mother had Dementia 2 sisters with Dementia. Social History * Smoker: non-smoker Alcohol: Denies Drugs: denies A-FIB/CHADSVASC A-FIB History Current/History of A-Fib/PAF?: Yes Current PO Anticoag Therapy: Yes Review of Systems Constitutional: Reports: Fever, Malaise, Weakness; Denies: Chills, Night Sweats Eyes: Denies: Pain, Vision change ENT: Denies: Head Aches, Ear Pain, Dysphagia Skin: Denies: Rash, Lesions, Breakdown Pulmonary: Denies: Dyspnea, Cough Cardiovascular: Denies: Chest Pain, Palpitations, Orthopnea, Paroxysmal Noc. Dyspnea, Lt Headedness Gastrointestinal: Denies: Nausea, Vomiting, Abdominal Pain, Diarrhea Genitourinary: Reports: Frequency Musculoskeletal: Reports: Back Pain Physical Examination General Exam: Positive: Alert, Cooperative, No Acute Distress Eye Exam: Positive: PERRLA, Conjunctiva & lids normal, EOMI; Negative: Sclera icteric ENT Exam: Positive: Atraumatic, Mucous membr. moist/pink, Pharynx Normal Neck Exam: Positive: Supple; Negative: JVD, thyromegaly Chest Exam: Positive: Clear to auscultation, Normal air movement Heart Exam: Positive: Rate Normal, Regular Rhythm, Normal S1, Normal S2; Negative: Murmurs, Rubs Abdomen Exam: Positive: Normal bowel sounds, Soft; Negative: Tenderness Extremity Exam: Positive: Normal pulses; Negative: Clubbing, Cyanosis, Edema Neuro Exam: Positive: Normal Speech, Strength at 5/5 X4 ext, Normal Tone Vital Signs Vital Signs Date Time Temp Pulse Resp B/P (MAP) Pulse Ox O2 Delivery O2 Flow Rate FiO2 11/03/20 13:20 67 16 97 Room Air 11/03/20 13:00 141/66 (91) 11/03/20 10:20 98.3 Laboratory Data Labs 24H Laboratory Tests 2 11/03/20 11:10: Immature Granulocyte % (Auto) 1.3, Neutrophils (%) (Auto) 86.3H, Lymphocytes (%) (Auto) 4.9L, Monocytes (%) (Auto) 7.1, Eosinophils (%) (Auto) 0.1, Basophils (%) (Auto) 0.3, Neutrophils # (Auto) 17.2H, Lymphocytes # (Auto) 1.0L, Monocytes # (Auto) 1.4H, Eosinophils # (Auto) 0.0, Basophils # (Auto) 0.1, Nucleated Red Blood Cells % (auto) 0.0, Anion Gap 7L, Glomerular Filtration Rate 36.3, Calcium Level 8.7L, Total Bilirubin 0.7, Aspartate Amino Transf (AST/SGOT) 12, Alanine Aminotransferase (ALT/SGPT) 16, Alkaline Phosphatase 137H, Total Protein 6.6, Albumin 3.5, Albumin/Globulin Ratio 1.1 11/03/20 11:52: Urine Color YELLOW, Urine Appearance CLOUDYH, Urine pH 5.0, Urine Specific [place] 1.014, Urine Protein 1+H, Urine Glucose (UA) NEGATIVE, Urine Ketones NEGATIVE, Urine Blood 1+H, Urine Nitrite POSITIVEH, Urine Bilirubin NEGATIVE, Urine Urobilinogen 0.2, Urine Leukocyte Esterase 3+H, Urine WBC (Auto) TNTCH, Urine RBC (Auto) 10H, Urine Hyaline Casts (Auto) 0, Urine Bacteria (Auto) NEGATIVE, Urine Squamous Epithelial Cells 1, Urine Mucus (Auto) SMALL, Urine Sperm (Auto) 11/03/20 12:52: Coronavirus (COVID-19)(PCR) NEGATIVE, Influenza Type A (RT-PCR) NEGATIVE, Influenza Type B (RT-PCR) NEGATIVE, Respiratory Syncytial Virus (PCR) NEGATIVE CBC/BMP Laboratory Tests 11/03/20 11:10 Microbiology Microbiology 11/03/20 Urine Culture, Received Pending 11/03/20 Blood Culture, Received Pending 11/03/20 Blood Culture, Received Pending Assessment/Plan 85-year-old male with history of dementia, CKD stage III, Atrial fibrillation, hypertension, hyperlipidemia, gout, hypothyroid, spinal stenosis, CAD status post stenting , presented to the ED for generalized weakness which gradually worsened over the past 3 days. As per who is at bedside, reported that he has been a little weak initially, but yesterday he was so weak that he couldn't sit up in bed. He couldn't stand up. He couldn't walk to the bathroom. He couldn't dress himself. also reports that he goes to the bathroom for urination but he frequently, which is a chronic issue. She denied any fever at home She further reported that seem a similar thing happened when he had a urinary tract infection last year. At baseline, patient is independent in his walking and is able to feed himself, able to dress himself. Patient himself denied any pain anywhere. He knew he was in the hospital but did not offer any complaints. In the ED, he had a low-grade fever of 100.3. His labs were significant with him. Elevated WBC of 12 19,000, and his UA was very dirty with positive nitrite and positive leukocyte esterase. He was admitted for urinary tract infection. Weakness Likely due to urinary tract infection PT/OT Urinary tract infection. Last urine culture from 2019 showed that he grew Pseudomonas. Will treat with levofloxacin. Urine culture and blood culture have been sent Will get bladder scan, especially post void residual to see there is chronic urinary retention CKD Creatinine at baseline will monitor. Chronic A. fib Will continue with them, amiodarone and the beta mahnaz Will check an EKG for QTC prolongation as he is going to be on levofloxacin Will continue Eliquis Hypertension Blood pressure in the low normal side But only give beta mahnaz for now. Will hold other home antihypertensive medications Gout continue allopurinol Hyperlipidemia Continue statin CAD status post stents and beta mahnaz and statin Dementia. Will continue with home medications Hypothyroid. Continue Synthroid Plan / VTE VTE Prophylaxis Ordered?: Yes GERBER AGUAYO MD November 03, 2020 13:58
[2020-11-03] MEDS: allopurinoL 300 MG TAB PO SCH (19:05)
[2020-11-03] MEDS: AMIODARONE 100MG TABLET (PACERONE) PO SCH (19:05)
[2020-11-03] MEDS: ATORVASTATIN 20 MG TAB PO SCH (19:05)
[2020-11-03] MEDS: APIXABAN 2.5 MG TAB (ELIQUIS) PO SCH (20:09)
[2020-11-03] MEDS: CARVedilol 12.5 MG TAB PO SCH (20:10)
[2020-11-03 22:00] VITALS: BP 130/62
[2020-11-04] MEDS: LevoFLOXacin 250 MG TABLET PO SCH (05:42)
[2020-11-04] MEDS: LEVOTHYROXINE 88MCG TABLET (0.088 MG) PO SCH (05:42)
[2020-11-04 06:00] VITALS: BP 127/63
[2020-11-04 06:36] LABS: BASO % 0.2 % (0.0-1.0); EOS % 0.3 % (0.0-3.0); HEMATOCRIT 32.9 % (42.0-52.0); HEMOGLOBIN 10.9 g/dl (13.5-17.5); LYMPH # 1.2 10^3/uL (1.5-5.0); LYMPH % 7.6 % (24.0-44.0); MEAN CORPUSCULAR HEMOGLOBIN 30.4 pg (27.0-33.0); MEAN CORPUSCULAR HGB CONC 33.1 g/dl (32.0-36.5); MEAN CORPUSCULAR VOLUME 91.9 fl (80.0-96.0); MONO # 1.3 10^3/uL (0.0-0.8); NEUTROPHILS # 13.2 10^3/uL (1.5-8.5); NEUTROPHILS % 83.3 % (36.0-66.0); PLATELET COUNT, AUTOMATED 128 10^3/uL (150-450); RED BLOOD COUNT 3.58 10^6/uL (4.30-6.10); WHITE BLOOD COUNT 15.8 10^3/uL (4.0-10.0)
[2020-11-04 06:52] LABS: CALCIUM LEVEL 8.5 MG/DL (8.8-10.2); CREATININE FOR GFR 1.84 MG/DL (0.70-1.30); GLOMERULAR FILTRATION RATE 37.2 (>35)
[2020-11-04] MEDS: ATORVASTATIN 20 MG TAB PO SCH (09:32)
[2020-11-04] MEDS: AMIODARONE 100MG TABLET (PACERONE) PO SCH (09:33)
[2020-11-04] MEDS: APIXABAN 2.5 MG TAB (ELIQUIS) PO SCH ×2 (09:33→20:36)
[2020-11-04] MEDS: allopurinoL 300 MG TAB PO SCH (09:33)
--- NOTE | 2020-11-04 10:36 | IPNPDOC ---
Subjective Date Seen The patient was seen on 11/04/20. Subjective Chief Complaint/HPI Does not have any complaints this morning. No fever over night. Objective Physical Examination General Exam: Positive: Alert, Cooperative, No Acute Distress Eye Exam: Positive: PERRLA, Conjunctiva & lids normal, EOMI; Negative: Sclera icteric ENT Exam: Positive: Atraumatic, Mucous membr. moist/pink, Pharynx Normal Neck Exam: Positive: Supple; Negative: JVD, thyromegaly Chest Exam: Positive: Clear to auscultation, Normal air movement Heart Exam: Positive: Rate Normal, Regular Rhythm, Normal S1, Normal S2; Negative: Murmurs, Rubs Abdomen Exam: Positive: Normal bowel sounds, Soft; Negative: Tenderness Extremity Exam: Positive: Normal pulses; Negative: Clubbing, Cyanosis, Edema Neuro Exam: Positive: Normal Speech, Strength at 5/5 X4 ext, Normal Tone Assessment /Plan Assessment 85-year-old male with history of dementia, CKD stage III, Atrial fibrillation, hypertension, hyperlipidemia, gout, hypothyroid, spinal stenosis, CAD status post stenting , presented to the ED for generalized weakness which gradually worsened over the past 3 days. As per who is at bedside, reported that he has been a little weak initially, but yesterday he was so weak that he couldn't sit up in bed. He couldn't stand up. He couldn't walk to the bathroom. He couldn't dress himself. also reports that he goes to the bathroom for urination but he frequently, which is a chronic issue. She denied any fever at home She further reported that seem a similar thing happened when he had a urinary tract infection last year. At baseline, patient is independent in his walking and is able to feed himself, able to dress himself. Patient himself denied any pain anywhere. He knew he was in the hospital but did not offer any complaints. In the ED, he had a low-grade fever of 100.3. His labs were significant with him. Elevated WBC of 12 19,000, and his UA was very dirty with positive nitrite and positive leukocyte esterase. He was admitted for urinary tract infection. Weakness Likely due to urinary tract infection PT/OT Urinary tract infection. Last urine culture from 2019 showed that he grew Pseudomonas. Will treat with levofloxacin. Urine culture and blood culture have been sent Post Void bladder scan was 0. CKD Creatinine at baseline will monitor. Chronic A. fib Will continue with them, amiodarone and the beta mahnaz Will check an EKG for QTC prolongation as he is going to be on levofloxacin Will continue Eliquis Hypertension Blood pressure in the low normal side But only give beta mahnaz for now. Will hold other home antihypertensive medications Gout continue allopurinol Hyperlipidemia Continue statin CAD status post stents and beta mahnaz and statin Dementia. Will continue with home medications Hypothyroid. Continue Synthroid Plan/VTE VTE Prophylaxis Ordered?: Yes VS, I&O, 24H, Fishbone Vital Signs/I&O Vital Signs Date Time Temp Pulse Resp B/P (MAP) Pulse Ox O2 Delivery O2 Flow Rate FiO2 11/04/20 06:00 97.9 75 18 127/63 (84) 97 Room Air I&O- Last 24 Hours up to 6 AM 11/04/20 06:00 Intake Total 580 ml Balance 580 ml Laboratory Data 24H LABS Laboratory Tests 2 11/03/20 11:10: Immature Granulocyte % (Auto) 1.3, Neutrophils (%) (Auto) 86.3H, Lymphocytes (%) (Auto) 4.9L, Monocytes (%) (Auto) 7.1, Eosinophils (%) (Auto) 0.1, Basophils (%) (Auto) 0.3, Neutrophils # (Auto) 17.2H, Lymphocytes # (Auto) 1.0L, Monocytes # (Auto) 1.4H, Eosinophils # (Auto) 0.0, Basophils # (Auto) 0.1, Nucleated Red Blood Cells % (auto) 0.0, Anion Gap 7L, Glomerular Filtration Rate 36.3, Calcium Level 8.7L, Total Bilirubin 0.7, Aspartate Amino Transf (AST/SGOT) 12, Alanine Aminotransferase (ALT/SGPT) 16, Alkaline Phosphatase 137H, Total Protein 6.6, Albumin 3.5, Albumin/Globulin Ratio 1.1 11/03/20 11:52: Urine Color YELLOW, Urine Appearance CLOUDYH, Urine pH 5.0, Urine Specific [place] 1.014, Urine Protein 1+H, Urine Glucose (UA) NEGATIVE, Urine Ketones NEGATIVE, Urine Blood 1+H, Urine Nitrite POSITIVEH, Urine Bilirubin NEGATIVE, Urine Urobilinogen 0.2, Urine Leukocyte Esterase 3+H, Urine WBC (Auto) TNTCH, Urine RBC (Auto) 10H, Urine Hyaline Casts (Auto) 0, Urine Bacteria (Auto) NEGATIVE, Urine Squamous Epithelial Cells 1, Urine Mucus (Auto) SMALL, Urine Sperm (Auto) 11/03/20 12:52: Coronavirus (COVID-19)(PCR) NEGATIVE, Influenza Type A (RT-PCR) NEGATIVE, Influenza Type B (RT-PCR) NEGATIVE, Respiratory Syncytial Virus (PCR) NEGATIVE 11/03/20 14:55: Lactic Acid Level 1.0 11/03/20 15:26: Prothrombin Time 14.9H, Prothromb Time International Ratio 1.14, Activated Partial Thromboplast Time 38.5H 11/04/20 06:02: Immature Granulocyte % (Auto) 0.6, Neutrophils (%) (Auto) 83.3H, Lymphocytes (%) (Auto) 7.6L, Monocytes (%) (Auto) 8.0, Eosinophils (%) (Auto) 0.3, Basophils (%) (Auto) 0.2, Neutrophils # (Auto) 13.2H, Lymphocytes # (Auto) 1.2L, Monocytes # (Auto) 1.3H, Eosinophils # (Auto) 0.0, Basophils # (Auto) 0.0, Nucleated Red Blood Cells % (auto) 0.0, Anion Gap 6L, Glomerular Filtration Rate 37.2, Calcium Level 8.5L CBC/BMP Laboratory Tests 11/03/20 11:10 11/04/20 06:02 Microbiology Microbiology 11/03/20 Urine Culture, Received Pending 11/03/20 Blood Culture, Received Pending 11/03/20 Blood Culture, Received Pending GERBER AGUAYO MD November 04, 2020 10:36
[2020-11-04] MEDS: CARVedilol 12.5 MG TAB PO SCH ×2 (10:58→20:36)
[2020-11-04 14:00] VITALS: BP 119/53
[2020-11-04 22:00] VITALS: BP 155/68
[2020-11-05 06:00] VITALS: BP 131/62
[2020-11-05] MEDS: LevoFLOXacin 250 MG TABLET PO SCH (06:17)
[2020-11-05] MEDS: LEVOTHYROXINE 88MCG TABLET (0.088 MG) PO SCH (06:17)
[2020-11-05 06:19] LABS: BASO % 0.3 % (0.0-1.0); EOS # 0.1 10^3/uL (0.0-0.5); HEMATOCRIT 32.2 % (42.0-52.0); HEMOGLOBIN 10.7 g/dl (13.5-17.5); LYMPH % 9.5 % (24.0-44.0); MEAN CORPUSCULAR HEMOGLOBIN 30.3 pg (27.0-33.0); MEAN CORPUSCULAR HGB CONC 33.2 g/dl (32.0-36.5); MEAN CORPUSCULAR VOLUME 91.2 fl (80.0-96.0); MONO # 0.9 10^3/uL (0.0-0.8); MONO % 8.2 % (2.0-8.0); NEUTROPHILS # 8.4 10^3/uL (1.5-8.5); NEUTROPHILS % 80.3 % (36.0-66.0); PLATELET COUNT, AUTOMATED 142 10^3/uL (150-450); RED BLOOD COUNT 3.53 10^6/uL (4.30-6.10); WHITE BLOOD COUNT 10.5 10^3/uL (4.0-10.0)
[2020-11-05 06:43] LABS: CALCIUM LEVEL 8.3 MG/DL (8.8-10.2); CREATININE FOR GFR 1.74 MG/DL (0.70-1.30); GLOMERULAR FILTRATION RATE 39.7 (>35); POTASSIUM SERUM 4.1 MEQ/L (3.5-5.1)
[2020-11-05] MEDS ORDERED: LEVO250T12 PO (08:01)
[2020-11-05] MEDS: ATORVASTATIN 20 MG TAB PO SCH (09:41)
[2020-11-05] MEDS: AMIODARONE 100MG TABLET (PACERONE) PO SCH (09:41)
[2020-11-05 09:42] VITALS: BP 151/90
[2020-11-05] MEDS: allopurinoL 300 MG TAB PO SCH (09:42)
[2020-11-05] MEDS: CARVedilol 12.5 MG TAB PO SCH (09:42)
[2020-11-05] MEDS: APIXABAN 2.5 MG TAB (ELIQUIS) PO SCH (09:42)
--- NOTE | 2020-11-05 11:21 | IPNPDOC ---
Subjective Date Seen The patient was seen on 11/05/20. Subjective Chief Complaint/HPI No complaints this morning. Eager to go home. Objective Physical Examination General Exam: Positive: Alert, Cooperative, No Acute Distress Eye Exam: Positive: PERRLA, Conjunctiva & lids normal, EOMI; Negative: Sclera icteric ENT Exam: Positive: Atraumatic, Mucous membr. moist/pink, Pharynx Normal Neck Exam: Positive: Supple; Negative: JVD, thyromegaly Chest Exam: Positive: Clear to auscultation, Normal air movement Heart Exam: Positive: Rate Normal, Regular Rhythm, Normal S1, Normal S2; Negative: Murmurs, Rubs Abdomen Exam: Positive: Normal bowel sounds, Soft; Negative: Tenderness Extremity Exam: Positive: Normal pulses; Negative: Clubbing, Cyanosis, Edema Neuro Exam: Positive: Normal Speech, Strength at 5/5 X4 ext, Normal Tone Assessment /Plan Assessment 85-year-old male with history of dementia, CKD stage III, Atrial fibrillation, hypertension, hyperlipidemia, gout, hypothyroid, spinal stenosis, CAD status post stenting , presented to the ED for generalized weakness which gradually worsened over the past 3 days. As per who is at bedside, reported that he has been a little weak initially, but yesterday he was so weak that he couldn't sit up in bed. He couldn't stand up. He couldn't walk to the bathroom. He couldn't dress himself. also reports that he goes to the bathroom for urination but he frequently, which is a chronic issue. She denied any fever at home She further reported that seem a similar thing happened when he had a urinary tract infection last year. At baseline, patient is independent in his walking and is able to feed himself, able to dress himself. Patient himself denied any pain anywhere. He knew he was in the hospital but did not offer any complaints. In the ED, he had a low-grade fever of 100.3. His labs were significant with him. Elevated WBC of 12 19,000, and his UA was very dirty with positive nitrite and positive leukocyte esterase. He was admitted for urinary tract infection. Weakness Likely due to urinary tract infection Now resolved. Back to baseline status Urinary tract infection. Urine culture with E coli. Blood culture prelim negative. Continue levofloxacin. Post Void bladder scan was 0. EKG after 3 doses of levofloxacin did not show any qtc prolongation. CKD Creatinine at baseline Chronic A. fib continue with amiodarone and the beta mahnaz EKG after 3 doses of levofloxacin did not show any qtc prolongation. Will continue Eliquis Hypertension continue home meds. coreg, candesartan, nifedipine. Gout continue allopurinol Hyperlipidemia Continue statin CAD status post stents and beta mahnaz and statin Dementia. continue with home medications Hypothyroid. Continue Synthroid Dispo: Home. Follow up PMD in 1 to 2 weeks. Plan/VTE VTE Prophylaxis Ordered?: Yes VS, I&O, 24H, Fishbone Vital Signs/I&O Vital Signs Date Time Temp Pulse Resp B/P (MAP) Pulse Ox O2 Delivery O2 Flow Rate FiO2 11/05/20 09:42 71 151/90 11/05/20 06:00 98.2 18 96 Room Air I&O- Last 24 Hours up to 6 AM 11/05/20 06:00 Intake Total 1090 ml Balance 1090 ml Laboratory Data 24H LABS Laboratory Tests 2 11/05/20 05:45: Immature Granulocyte % (Auto) 0.7, Neutrophils (%) (Auto) 80.3H, Lymphocytes (%) (Auto) 9.5L, Monocytes (%) (Auto) 8.2H, Eosinophils (%) (Auto) 1.0, Basophils (%) (Auto) 0.3, Neutrophils # (Auto) 8.4, Lymphocytes # (Auto) 1.0L, Monocytes # (Auto) 0.9H, Eosinophils # (Auto) 0.1, Basophils # (Auto) 0.0, Nucleated Red Blood Cells % (auto) 0.0, Anion Gap 8, Glomerular Filtration Rate 39.7, Calcium Level 8.3L CBC/BMP Laboratory Tests 11/05/20 05:45 Microbiology Microbiology 11/03/20 Urine Culture - Final, Complete Escherichia Coli 11/03/20 Blood Culture - Preliminary, Resulted No growth after 24 hours . All specim... 11/03/20 Blood Culture - Preliminary, Resulted No growth after 24 hours . All specim... GERBER AGUAYO MD November 05, 2020 11:21
--- NOTE | 2020-11-06 19:02 | ECGEPIP ---
[facility] Test Date: 2020-11-05 Pat Name: HOLGER CORTES Department: Room: [place] [address] Gender: Male Division Controller: FREDDY : 1935 Requested By: GERBER AGUAYO Order Number: [id number] Reading MD: Tim Simeon Measurements Intervals [place] Rate: 70 P: 67 NE: 166 QRS: 10 QRSD: 86 T: 46 QT: 434 QTc: 468 Interpretive Statements Normal sinus rhythm Nonspecific T wave abnormality Compared to prior tracings (3) in the system No remarkable changes Electronically Signed on 11-06-2020 19:02:18 EDT by Tim Simeon
== END 2020-11-05 10:56 | disposition home or self-care (01) ==
LOC: EDBD 10:04 → M ED 10:04 → M ED INP 10:05 → ENRESERV 15:18 → M MSPAV 16:31
PROVIDERS: ADMIT Internal Medicine Nephrology; ATTEND Internal Medicine Nephrology
DX: N39.0 Urinary tract infection, site not specified (principal); B96.20 Unspecified Escherichia coli [E. coli] as the cause of diseases classified elsewhere; F03.90 Unspecified dementia, unspecified severity, without behavioral disturbance, psychotic disturbance, mood disturbance, and anxiety; N18.30 Chronic kidney disease, stage 3 unspecified; I48.20 Chronic atrial fibrillation, unspecified; E03.9 Hypothyroidism, unspecified; Z98.61 Coronary angioplasty status; I12.9 Hypertensive chronic kidney disease with stage 1 through stage 4 chronic kidney disease, or unspecified chronic kidney disease; E78.49 Other hyperlipidemia; M10.9 Gout, unspecified; I73.9 Peripheral vascular disease, unspecified; Z79.01 Long term (current) use of anticoagulants; Z79.899 Other long term (current) drug therapy; Z88.0 Allergy status to penicillin; I34.9 Nonrheumatic mitral valve disorder, unspecified; D64.9 Anemia, unspecified
CPT/HCPCS: 36415; 70450; 71045; 74176; 80048; 80053; 81001; 83605; 85025; 85610; 85730; 87040; 87088; 87186; 87631; 93005; 96365; 97161; 97530; 99285; G0378; J1956

== ENCOUNTER → 2020-11-15 | Outpatient (REF) | payer MEDICARE, OTHER ==
[~2020-11-15] MED LIST changes: +LEVO250T12 PO; +SYNT88TA2 PO; +ZYLO300T6 PO
[2020-11-15 15:09] LABS: BASO # 0.1 10^3/uL (0.0-0.2); BASO % 0.6 % (0.0-1.0); EOS # 0.1 10^3/uL (0.0-0.5); HEMATOCRIT 36.2 % (42.0-52.0); HEMOGLOBIN 11.7 g/dl (13.5-17.5); LYMPH # 1.3 10^3/uL (1.5-5.0); LYMPH % 15.9 % (24.0-44.0); MEAN CORPUSCULAR HEMOGLOBIN 29.8 pg (27.0-33.0); MEAN CORPUSCULAR HGB CONC 32.3 g/dl (32.0-36.5); MEAN CORPUSCULAR VOLUME 92.1 fl (80.0-96.0); MONO # 0.7 10^3/uL (0.0-0.8); MONO % 9.1 % (2.0-8.0); NEUTROPHILS # 5.7 10^3/uL (1.5-8.5); NEUTROPHILS % 72.8 % (36.0-66.0); PLATELET COUNT, AUTOMATED 201 10^3/uL (150-450); RED BLOOD COUNT 3.93 10^6/uL (4.30-6.10); WHITE BLOOD COUNT 7.9 10^3/uL (4.0-10.0)
[2020-11-15 15:27] LABS: HEMOGLOBIN A1c 5.6 %
[2020-11-15 15:46] LABS: ALBUMIN 3.8 GM/DL (3.2-5.2); BILIRUBIN,TOTAL 0.4 MG/DL (0.2-1.0); C REACTIVE PROTEIN QUANTITATIV 0.77 MG/DL (0.00-0.30); CALCIUM LEVEL 8.7 MG/DL (8.8-10.2); CHOLESTEROL RISK RATIO 3.15 (<5); CREATININE FOR GFR 2.37 MG/DL (0.70-1.30); FREE T4 1.42 NG/DL (0.76-1.46); GLOMERULAR FILTRATION RATE 27.8 (>35); POTASSIUM SERUM 5.2 MEQ/L (3.5-5.1); THYROID STIMULATING HORMONE 0.848 uIU/ML (0.358-3.740); TOTAL PROTEIN 6.8 GM/DL (6.4-8.2); URIC ACID 4.6 MG/DL (3.5-7.2)
[2020-11-15 15:49] LABS: PTH INTACT 54.3 PG/ML (18.5-88.0); TOTAL 25(OH) VITAMIN D 59.4 NG/ML (30.0-100.0)
== END ==
LOC: M SFHCPLAZ 12:15
PROVIDERS: ATTEND Nurse Practitioner Family
DX: D69.6 Thrombocytopenia, unspecified (principal); N39.0 Urinary tract infection, site not specified; M10.9 Gout, unspecified; E78.5 Hyperlipidemia, unspecified; R73.01 Impaired fasting glucose; E03.9 Hypothyroidism, unspecified; N18.30 Chronic kidney disease, stage 3 unspecified; E55.9 Vitamin D deficiency, unspecified; Z12.5 Encounter for screening for malignant neoplasm of prostate
CPT/HCPCS: 36415; 80053; 80061; 82306; 83036; 83970; 84439; 84443; 84550; 85025; 86140; 99495; G0103

== ENCOUNTER → 2020-12-01 | Outpatient (REF) | payer MEDICARE, OTHER | LOC: M LAB REF 16:51 | PROVIDERS: ATTEND Physician Assistant | DX: I48.0 Paroxysmal atrial fibrillation (principal) ==

== ENCOUNTER → 2020-12-01 | Outpatient (CLI) | payer MEDICARE, OTHER ==
--- NOTE | 2020-12-01 10:14 | REP ---
INDICATION: CKD STAGE 3 ELEVATED PSA COMPARISON: None TECHNIQUE: Real time rivera scale ultrasound examination using curved array transducer followed by color Doppler evaluation of the renal vasculature. FINDINGS: Bilateral kidneys are normal in reniform shape and demonstrate increased central sinus fat with mild cortical thinning and few relatively simple appearing benign bilateral cysts. Right kidney measures 10.0 x 5.5 x 5.2 cm with 1.1 cm lower pole cyst Left kidney measures 11.1 x 4.6 x 5.2 cm with 2.1 cm upper pole cyst and 1.4 cm lower pole cyst. Color Doppler evaluation. Peak aortic velocity: 78 centimeters/second RIGHT KIDNEY Renal arterial velocity: 83 centimeters/second Renal-aortic ratio: 1.06 Intrarenal resistive indices: 0.89-0.92 Intrarenal acceleration times: 0.038-0.050 LEFT KIDNEY Renal arterial velocity: 110 centimeters/second Renal-aortic ratio: 1.4 Intrarenal resistive indices: 0.84-0.89 Intrarenal acceleration times: 0.040-0.046 IMPRESSION: 1. Kidneys demonstrate chronic age-related changes and few simple appearing cysts without hydronephrosis or nephrolithiasis.. 2. Doppler interegation without sonographic evidence for renal arterial stenosis. <Electronically signed by Darrius Ulloa > 12/01/20 [id number]
--- NOTE | 2020-12-01 10:16 | REP ---
INDICATION: CKD STAGE 3 ELEVATED PSA COMPARISON: None TECHNIQUE: Real time B-mode ultrasound examination using curved array transducer. FINDINGS: Bladder was poorly distended during examination. No obvious wall thickening or mass lesion identified. Ureteral jets were not visualized during exam. Heterogeneous prostate gland measures 4.7 x 3.8 x 3.8 cm (35 cc). Prevoid bladder measures 7.3 x 7.5 x 3.2 cm (114 cc). Postvoid bladder completely emptied Postvoid residual: 0% IMPRESSION: 1. Poor filling of the bladder. Otherwise normal examination. <Electronically signed by Darrius Ulloa > 12/01/20 1012
== END ==
LOC: M RAD 08:25
PROVIDERS: ATTEND Nurse Practitioner Family
DX: N18.30 Chronic kidney disease, stage 3 unspecified (principal); Z12.5 Encounter for screening for malignant neoplasm of prostate; N28.1 Cyst of kidney, acquired; N32.89 Other specified disorders of bladder; I48.0 Paroxysmal atrial fibrillation; I13.10 Hypertensive heart and chronic kidney disease without heart failure, with stage 1 through stage 4 chronic kidney disease, or unspecified chronic kidney disease

== ENCOUNTER → 2021-05-31 | Outpatient (CLI) | payer MEDICARE, OTHER ==
[~2021-05-31] MED LIST changes: -AMIO200T3 PO; +AMIO200T49 PO; +CAND16TA17 PO; -CAND16TA7 PO; -CAND8TAB PO; +CAND8TAB8 PO; +DONE-1 PO; -DONETAB6 PO; +ERGO500029 PO; -LEVO250T12 PO; +LEVO250T3 PO
[2021-05-31 15:38] LABS: BASO # 0.1 10^3/uL (0.0-0.2); BASO % 0.7 % (0.0-1.0); EOS # 0.1 10^3/uL (0.0-0.5); EOS % 0.9 % (0.0-3.0); HEMATOCRIT 33.2 % (42.0-52.0); HEMOGLOBIN 10.6 g/dl (13.5-17.5); LYMPH # 1.1 10^3/uL (1.5-5.0); LYMPH % 15.5 % (24.0-44.0); MEAN CORPUSCULAR HGB CONC 31.9 g/dl (32.0-36.5); MEAN CORPUSCULAR VOLUME 94.1 fl (80.0-96.0); MONO # 0.6 10^3/uL (0.0-0.8); MONO % 8.8 % (2.0-8.0); NEUTROPHILS # 5.1 10^3/uL (1.5-8.5); NEUTROPHILS % 73.7 % (36.0-66.0); PLATELET COUNT, AUTOMATED 154 10^3/uL (150-450); RED BLOOD COUNT 3.53 10^6/uL (4.30-6.10); WHITE BLOOD COUNT 6.9 10^3/uL (4.0-10.0)
[2021-05-31 15:56] LABS: HEMOGLOBIN A1c 5.5 %
[2021-05-31 16:17] LABS: ALBUMIN 3.6 GM/DL (3.2-5.2); BILIRUBIN,TOTAL 0.5 MG/DL (0.2-1.0); CALCIUM LEVEL 8.6 MG/DL (8.8-10.2); CHOLESTEROL RISK RATIO 2.783 (<5); CREATININE FOR GFR 2.23 MG/DL (0.70-1.30); FREE T4 1.36 NG/DL (0.76-1.46); GLOMERULAR FILTRATION RATE 29.8 (>35); POTASSIUM SERUM 4.5 MEQ/L (3.5-5.1); THYROID STIMULATING HORMONE 0.617 uIU/ML (0.358-3.740); TOTAL PROTEIN 6.6 GM/DL (6.4-8.2)
== END ==
LOC: M PLALAB 12:02
PROVIDERS: ATTEND Nurse Practitioner Family
DX: E78.5 Hyperlipidemia, unspecified (principal); I48.20 Chronic atrial fibrillation, unspecified; E03.9 Hypothyroidism, unspecified; R73.01 Impaired fasting glucose

== ENCOUNTER → 2021-11-13 | Outpatient (CLI) | payer MEDICARE, OTHER ==
[2021-11-13 15:36] LABS: BASO # 0.1 10^3/uL (0.0-0.2); BASO % 0.8 % (0.0-1.0); EOS # 0.1 10^3/uL (0.0-0.5); EOS % 1.1 % (0.0-3.0); HEMATOCRIT 32.6 % (42.0-52.0); HEMOGLOBIN 10.5 g/dl (13.5-17.5); LYMPH # 0.9 10^3/uL (1.5-5.0); LYMPH % 14.2 % (24.0-44.0); MEAN CORPUSCULAR HEMOGLOBIN 30.7 pg (27.0-33.0); MEAN CORPUSCULAR HGB CONC 32.2 g/dl (32.0-36.5); MEAN CORPUSCULAR VOLUME 95.3 fl (80.0-96.0); MONO # 0.6 10^3/uL (0.0-0.8); MONO % 8.6 % (2.0-8.0); NEUTROPHILS # 4.9 10^3/uL (1.5-8.5); PLATELET COUNT, AUTOMATED 157 10^3/uL (150-450); RED BLOOD COUNT 3.42 10^6/uL (4.30-6.10); WHITE BLOOD COUNT 6.5 10^3/uL (4.0-10.0)
[2021-11-13 16:08] LABS: HEMOGLOBIN A1c 5.2 %
[2021-11-13 16:11] LABS: CALCIUM LEVEL 8.9 MG/DL (8.8-10.2); CREATININE FOR GFR 2.08 MG/DL (0.70-1.30); GLOMERULAR FILTRATION RATE 32.2 (>35); POTASSIUM SERUM 4.4 MEQ/L (3.5-5.1)
[2021-11-13 16:12] LABS: ALBUMIN 3.4 GM/DL (3.2-5.2); BILIRUBIN,TOTAL 0.6 MG/DL (0.2-1.0); CHOLESTEROL RISK RATIO 2.548 (<5); FREE T4 1.51 NG/DL (0.76-1.46); THYROID STIMULATING HORMONE 0.164 uIU/ML (0.358-3.740); TOTAL PROTEIN 6.4 GM/DL (6.4-8.2)
== END ==
LOC: M PLALAB 11:37
PROVIDERS: ATTEND Nurse Practitioner Family
DX: I48.20 Chronic atrial fibrillation, unspecified (principal); E03.9 Hypothyroidism, unspecified; R73.01 Impaired fasting glucose; E78.5 Hyperlipidemia, unspecified

== ENCOUNTER → 2022-03-28 | Outpatient (CLI) | payer MEDICARE, OTHER ==
[~2022-03-28] MED LIST changes: +LEVO1TAB38 PO; +LEVO1TAB40 PO; -LEVO250T3 PO; -LEVO750T13 PO
[2022-03-28 16:44] LABS: HEMATOCRIT 38.9 % (42.0-52.0); HEMOGLOBIN 12.6 g/dl (13.5-17.5); MEAN CORPUSCULAR HEMOGLOBIN 30.2 pg (27.0-33.0); MEAN CORPUSCULAR HGB CONC 32.4 g/dl (32.0-36.5); MEAN CORPUSCULAR VOLUME 93.3 fl (80.0-96.0); PLATELET COUNT, AUTOMATED 151 10^3/uL (150-450); RED BLOOD COUNT 4.17 10^6/uL (4.30-6.10); WHITE BLOOD COUNT 7.4 10^3/uL (4.0-10.0)
[2022-03-28 17:23] LABS: ALBUMIN 3.8 GM/DL (3.2-5.2); BILIRUBIN,TOTAL 0.6 MG/DL (0.2-1.0); CALCIUM LEVEL 8.5 MG/DL (8.8-10.2); CREATININE FOR GFR 2.77 MG/DL (0.70-1.30); GLOMERULAR FILTRATION RATE 23.1 (>35); MAGNESIUM LEVEL 2.7 MG/DL (1.8-2.4); TOTAL PROTEIN 6.9 GM/DL (6.4-8.2)
== END ==
LOC: M PLALAB 12:13
PROVIDERS: ATTEND Physician Assistant
DX: I48.0 Paroxysmal atrial fibrillation (principal)

== ENCOUNTER → 2022-05-22 | Outpatient (CLI) | payer MEDICARE, OTHER ==
[2022-05-22 14:00] LABS: BASO # 0.1 10^3/uL (0.0-0.2); BASO % 0.8 % (0.0-1.0); EOS # 0.1 10^3/uL (0.0-0.5); HEMOGLOBIN 12.7 g/dl (13.5-17.5); LYMPH % 17.1 % (24.0-44.0); MEAN CORPUSCULAR HGB CONC 31.8 g/dl (32.0-36.5); MEAN CORPUSCULAR VOLUME 94.3 fl (80.0-96.0); MONO # 0.4 10^3/uL (0.0-0.8); MONO % 7.2 % (2.0-8.0); NEUTROPHILS # 4.4 10^3/uL (1.5-8.5); NEUTROPHILS % 73.7 % (36.0-66.0); PLATELET COUNT, AUTOMATED 160 10^3/uL (150-450); RED BLOOD COUNT 4.24 10^6/uL (4.30-6.10)
[2022-05-22 14:42] LABS: ALBUMIN 3.9 G/DL (3.2-5.2); BILIRUBIN,TOTAL 0.9 MG/DL (0.3-1.2); CALCIUM LEVEL 8.2 MG/DL (8.3-10.6); CHOLESTEROL RISK RATIO 2.53 (<5); CREATININE FOR GFR 1.86 MG/DL (0.70-1.30); FREE T4 1.51 NG/DL (0.89-1.76); GLOMERULAR FILTRATION RATE 36.6 (>35); HDL CHOLESTEROL 59.9 MG/DL (>40); LDL CHOLESTEROL 73.5 MG/DL (<100); POTASSIUM SERUM 4.2 MMOL/L (3.5-5.1); THYROID STIMULATING HORMONE 1.836 uIU/ML (0.55-4.78); TOTAL 25(OH) VITAMIN D 64.6 NG/ML (20.0-100.0); TOTAL PROTEIN 6.5 G/DL (5.7-8.2); URIC ACID 5.6 MG/DL (3.7-9.2)
[2022-05-22 14:58] LABS: HEMOGLOBIN A1c 5.2 % (4.0-6.0)
== END ==
LOC: M PLALAB 11:55
PROVIDERS: ATTEND Nurse Practitioner Family
DX: E03.9 Hypothyroidism, unspecified (principal); I10 Essential (primary) hypertension; R73.01 Impaired fasting glucose; E55.9 Vitamin D deficiency, unspecified; M10.9 Gout, unspecified; Z79.899 Other long term (current) drug therapy

== ENCOUNTER → 2022-08-02 | Outpatient (CLI) | payer MEDICARE, OTHER | LOC: M PLAIMG 12:13 | PROVIDERS: ATTEND Physician Assistant | DX: I48.0 Paroxysmal atrial fibrillation (principal); Z79.899 Other long term (current) drug therapy; I70.0 Atherosclerosis of aorta; M48.14 Ankylosing hyperostosis [Forestier], thoracic region; J98.4 Other disorders of lung ==

== ENCOUNTER → 2022-11-22 | Outpatient (CLI) | payer MEDICARE, OTHER ==
[2022-11-22 18:05] LABS: BASO % 0.4 % (0.0-1.0); EOS # 0.1 10^3/uL (0.0-0.5); EOS % 0.9 % (0.0-3.0); HEMATOCRIT 37.4 % (42.0-52.0); LYMPH # 1.4 10^3/uL (1.5-5.0); LYMPH % 19.9 % (24.0-44.0); MEAN CORPUSCULAR HEMOGLOBIN 30.3 pg (27.0-33.0); MEAN CORPUSCULAR HGB CONC 32.1 g/dl (32.0-36.5); MEAN CORPUSCULAR VOLUME 94.4 fl (80.0-96.0); MONO # 0.7 10^3/uL (0.0-0.8); MONO % 10.7 % (2.0-8.0); NEUTROPHILS # 4.6 10^3/uL (1.5-8.5); NEUTROPHILS % 67.8 % (36.0-66.0); PLATELET COUNT, AUTOMATED 156 10^3/uL (150-450); RED BLOOD COUNT 3.96 10^6/uL (4.30-6.10); WHITE BLOOD COUNT 6.8 10^3/uL (4.0-10.0)
[2022-11-22 18:24] LABS: URIC ACID 6.5 MG/DL (3.7-9.2)
[2022-11-22 18:26] LABS: THYROID STIMULATING HORMONE 1.568 uIU/ML (0.55-4.78); TOTAL 25(OH) VITAMIN D 61.4 NG/ML (20.0-100.0)
[2022-11-22 18:28] LABS: ALBUMIN 3.7 G/DL (3.2-5.2); BILIRUBIN,TOTAL 0.5 MG/DL (0.3-1.2); CALCIUM LEVEL 7.9 MG/DL (8.3-10.6); CHOLESTEROL RISK RATIO 2.56 (<5); CREATININE FOR GFR 2.09 MG/DL (0.70-1.30); HDL CHOLESTEROL 64.6 MG/DL (>40); LDL CHOLESTEROL 80.4 MG/DL (<100); NON-HDL-C 101.4 MG/DL; POTASSIUM SERUM 4.4 MMOL/L (3.5-5.1); TOTAL PROTEIN 6.2 G/DL (5.7-8.2)
[2022-11-22 18:30] LABS: FREE T4 1.35 NG/DL (0.89-1.76)
== END ==
LOC: M PLALAB 15:07
PROVIDERS: ATTEND Nurse Practitioner Family
DX: I10 Essential (primary) hypertension (principal); E03.9 Hypothyroidism, unspecified; Z12.5 Encounter for screening for malignant neoplasm of prostate; E78.5 Hyperlipidemia, unspecified; M10.9 Gout, unspecified; E55.9 Vitamin D deficiency, unspecified
CPT/HCPCS: 36415; 80053; 80061; 82306; 84439; 84443; 84550; 85025; G0103

== ENCOUNTER → 2022-12-04 | Outpatient (CLI) | payer MEDICARE, OTHER ==
[2022-12-04 13:57] LABS: HEMATOCRIT 35.9 % (42.0-52.0); HEMOGLOBIN 11.5 g/dl (13.5-17.5); MEAN CORPUSCULAR HEMOGLOBIN 30.3 pg (27.0-33.0); MEAN CORPUSCULAR VOLUME 94.5 fl (80.0-96.0); PLATELET COUNT, AUTOMATED 141 10^3/uL (150-450); WHITE BLOOD COUNT 5.9 10^3/uL (4.0-10.0)
[2022-12-04 14:28] LABS: ALBUMIN 3.6 G/DL (3.2-5.2); BILIRUBIN,TOTAL 0.7 MG/DL (0.3-1.2); CALCIUM LEVEL 7.9 MG/DL (8.3-10.6); CHOLESTEROL RISK RATIO 2.6 (<5); CREATININE FOR GFR 2.23 MG/DL (0.70-1.30); GLOMERULAR FILTRATION RATE 29.7 (>35); HDL CHOLESTEROL 64.8 MG/DL (>40); LDL CHOLESTEROL 89.8 MG/DL (<100); NON-HDL-C 104.2 MG/DL; POTASSIUM SERUM 4.5 MMOL/L (3.5-5.1)
== END ==
LOC: M PLAIMG 11:53
PROVIDERS: ATTEND Physician Assistant
DX: I48.0 Paroxysmal atrial fibrillation (principal); E78.00 Pure hypercholesterolemia, unspecified

== ENCOUNTER 2022-12-12 13:30 | Outpatient (RCR) | payer MEDICARE, OTHER ==
[~2022-12-12 13:30] MED LIST changes: +NIFE-3 PO; -NIFE30TA50 PO
== END 2022-12-28 ==
LOC: M ST 13:30
PROVIDERS: ATTEND Nurse Practitioner Family
DX: R13.10 Dysphagia, unspecified (principal)

== ENCOUNTER 2023-01-31 11:00 | Emergency (ER) | payer MEDICARE, OTHER ==
[~2023-01-31] VITALS: Ht 175.3 cm; Wt 72.7 kg
[2023-01-31] MEDS ORDERED: MYRB25TA PO (11:47)
[2023-01-31] MEDS ORDERED: NS 500 ML IV ONE (11:50)
[2023-01-31] MEDS ORDERED: CARVedilol 12.5 MG TAB PO ONE (11:50)
[2023-01-31] MEDS ORDERED: AMIODARONE 200 MG TAB (PACERONE) PO ONE ×2 (11:50→12:00)
[2023-01-31] MEDS ORDERED: PILL CUTTER 1 EACH XX ONE (12:07)
[2023-01-31 12:17] VITALS: BP 240/109
[2023-01-31] MEDS ORDERED: BOOSTRIX VACCINE (TETANUS/DIPHTH/ACEL. PERTUSSIS) 0.5ML SYR IM.IMMUN ONE (15:40)
[2023-01-31 17:00] VITALS: BP 218/101; TEMP 97.9; O2SAT 98
== END 2023-01-31 17:12 | disposition home or self-care (01) ==
LOC: EDBD 11:00 → M ED 11:00
DX: S00.03XA Contusion of scalp, initial encounter (principal); S63.125A Dislocation of interphalangeal joint of left thumb, initial encounter; I10 Essential (primary) hypertension; W19.XXXA Unspecified fall, initial encounter; I48.91 Unspecified atrial fibrillation; I25.10 Atherosclerotic heart disease of native coronary artery without angina pectoris; Z85.038 Personal history of other malignant neoplasm of large intestine; Z79.01 Long term (current) use of anticoagulants; Z79.899 Other long term (current) drug therapy; Z88.0 Allergy status to penicillin; Z91.89 Other specified personal risk factors, not elsewhere classified

== ENCOUNTER → 2023-02-14 | Outpatient (CLI) | payer MEDICARE, OTHER ==
[~2023-02-14] MED LIST changes: +MYRB25TA PO
== END ==
LOC: M SOG 13:53
PROVIDERS: ATTEND Physician Assistant
DX: S63.125A Dislocation of interphalangeal joint of left thumb, initial encounter (principal); S62.522A Displaced fracture of distal phalanx of left thumb, initial encounter for closed fracture; M77.8 Other enthesopathies, not elsewhere classified; M19.042 Primary osteoarthritis, left hand; X58.XXXA Exposure to other specified factors, initial encounter; Y92.9 Unspecified place or not applicable; Y93.9 Activity, unspecified; Y99.9 Unspecified external cause status